=== PATIENT | male | born 1940 | race Caucasian/White ===

== ENCOUNTER 2018-06-13 09:20 | Inpatient (IN) | payer OTHER ==
[2018-06-13] MEDS ORDERED: NS 1,000 ML IV ONE (09:48)
--- NOTE | 2018-06-13 09:50 | EDPHY ---
H & P Stated Complaint: GI problems since 05/28 Time Seen by Provider: 06/13/18 09:38 HPI/ROS: CHIEF COMPLAINT: "I'm just not getting the usual feedback from my stomach" HISTORY OF PRESENT ILLNESS: 77-year-old male, generally healthy, no history of abdominal surgeries, states that since eating at [employer] on 05/28/2018 he has been experiencing a variety of gastrointestinal complaints. He has been intermittently experiencing loose stool . He is concerned because he is not receiving the "usual feedback from my stomach whether I should eat or not". He therefore has not been eating very frequently. When he does eat he does not experience abdominal pain, does not experience back or flank pain, did not experience nausea or vomiting but does note that he does not experience satiety. Denies: Weight loss, abdominal pain, headache, fever, chills, flu-like symptoms , myalgias, melena or hematochezia PRIMARY CARE PROVIDER: No primary care provider. REVIEW OF SYSTEMS: 10 systems reviewed and negative with the exception of the elements mentioned in the history of present illness PAST MEDICAL & SURGICAL HISTORY: No pertinent medical or surgical history . No history of abdominal surgery . Patient has no primary care provider, has not had annual physical examination in several years because states that he has been feeling well. SOCIAL HISTORY:Nonsmoker. No alcohol use. 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 PHYSICAL EXAM (Prior to examination, patient consented to physical exam, hands were washed and my usual and customary physical exam procedures followed) 1) GENERAL: Well-developed, well-nourished, alert and oriented. Appears to be in no acute distress. 2) HEAD: Normocephalic, atraumatic 3) HEENT: Pupils equal, round, reactive to light bilaterally. Sclera anicteric. Nasopharynx, oropharynx, clear, no lesions. Dry mucous membranes. Ears bilaterally with normal tympanic membranes. 4) NECK: Full range of motion, no meningeal signs. 5) LUNGS: Clear auscultation bilaterally, no wheezes, no rhonchi, no retractions. 6) HEART: Regular rate and rhythm, no murmur, no heave, no gallop. 7) ABDOMEN: No guarding, no rebound, no focal tenderness, negative McBurney's, negative Fajardo's, negative Rovsing's, negative peritoneal sign, 8) MUSCULOSKELETAL: Moving all extremities, no focal areas of tenderness, no obvious trauma. No peripheral edema or discoloration. 9) BACK: No CVA tenderness, no midline vertebral tenderness, no fluctuance, no step-off, no obvious trauma, no visual or palpable abnormality. 10) SKIN: No rash, no petechiae. 11) Psychiatric: Patient is oriented X 3, there is no agitation. DIFFERENTIAL DIAGNOSIS: My differential diagnosis includes, but is not limited to, acute appendicitis, malignancy, acute cholecystitis, bowel obstruction, acute pancreatitis, [testicular torsion], gastritis and urinary tract infection. The patient understands that this diagnosis is provisional and can never be 100% accurate. This is a partial list of diagnoses considered. These considerations are based on history, physical exam, past history and reassessment. - Personal History Current Tetanus Diphtheria and Acellular Pertussis (TDAP): Yes - Medical/Surgical History Hx Asthma: No Hx Chronic Respiratory Disease: No Hx Diabetes: No Hx Cardiac Disease: No Hx Renal Disease: No Hx Cirrhosis: No Hx Alcoholism: No Hx HIV/AIDS: No Hx Splenectomy or Spleen Trauma: No - Social History Smoking Status: Never smoked Constitutional: Initial Vital Signs Temperature (C) 36.6 C 06/13/18 09:32 Heart Rate 107 H 06/13/18 09:32 Respiratory Rate 16 06/13/18 09:32 Blood Pressure 140/71 H 06/13/18 09:32 O2 Sat (%) 95 06/13/18 09:32 O2 Delivery Mode Room Air Allergies/Adverse Reactions: No Known Allergies Allergy (Unverified 06/13/18 09:36) Home Medications: Medication Instructions Recorded NK [No Known Home Meds] 06/13/18 Medical Decision Making - Diagnostics Imaging Results: Imaging Impressions Abdomen CT 06/13/18 10:18 Impression: 1. Diffuse bowel wall thickening and inflammatory stranding surrounding the ascending, transverse, and descending colon compatible with colitis, possibly of infectious, inflammatory, or less likely ischemic nature. No evidence of small bowel obstruction or free air. 2. Mild dilatation of intrahepatic/extrahepatic biliary system for the patient' s age, with clinical concern for biliary obstruction, further evaluation with MRCP or ERCP is recommended. Mary Ledesma was notified these findings by telephone at 10:58 AM on 06/13/2018 Images reviewed by myself ED Course/Re-evaluation: 10:11 a.m.: Discussed case with secondary supervising physician Dr. Christian Espinoza in the ER. Patient describes decreased appetite for the past approximately 17 days with no abdominal pain. He is noted to have a critically low point of care potassium of 2.7. EKG in cardiac monitoring has been ordered on this patient. He denies vomiting or diarrhea. Will plan on CT imaging of the abdomen to evaluate for possible intra-abdominal malignancy. 10:19 a.m.: The laboratory potassium 3.1 significantly different verses the 2.7 , in addition the i-STAT creatinine is notably different from the laboratory value. Will proceed with CT imaging the abdomen and pelvis. 11:10 a.m.: Patient has diffuse colitis of the this large intestine. This may be secondary to infectious etiology. I recommended hospitalization, ceftriaxone , Flagyl. He is agreeable with this. 11:16 a.m.: Consultation with hospitalist, admit to Dr. Medel - Data Points Laboratory Results: Laboratory Results 06/13/18 09:50 06/13/18 09:50 06/13/18 06/13/18 06/13/18 10:02 09:50 09:50 WBC 13.41 10^3/uL H 10^3/uL (3.80-9.50) RBC 4.76 10^6/uL 10^6/uL (4.40-6.38) Hgb 14.3 g/dL g/dL (13.7-17.5) POC Hgb 15.3 gm/dL gm/dL (13.7-17.5) Hct 41.3 % % (40.0-51.0) POC Hct 45 % % (40-51) MCV 86.8 fL fL (81.5-99.8) MCH 30.0 pg pg (27.9-34.1) MCHC 34.6 g/dL g/dL (32.4-36.7) RDW 12.8 % % (11.5-15.2) Plt Count TNP MPV TNP Neut % (Auto) Not Reported Lymph % (Auto) Not Reported [place] % (Auto) Not Reported Eos % (Auto) Not Reported Baso % (Auto) Not Reported Nucleat RBC Rel Count Not Reported Absolute Neuts (auto) Not Reported Absolute Lymphs (auto) Not Reported Absolute Monos (auto) Not Reported Absolute Eos (auto) Not Reported Absolute Basos (auto) Not Reported Absolute Nucleated RBC Not Reported Immature Gran % Not Reported Seg Neutrophils % 55.0 % % Band Neutrophils % 37.0 % % Lymphocytes % 0.0 % % Monocytes % 8.0 % % Eosinophils % 0.0 % % Basophils % 0.0 % % Metamyelocytes % 0.0 % % Myelocytes % 0.0 % % Promyelocytes % 0.0 % % Blast Cells % 0.0 % % Immature Gran # Not Reported Absolute Seg Neuts 7.38 10^3/uL H 10^3/uL (1.70-6.50) Absolute Band Neuts 4.96 10^3/uL H 10^3/uL (0.00-0.70) Absolute Lymphocytes 0.00 10^3/uL L 10^3/uL (1.00-3.00) Absolute Monocytes 1.07 10^3/uL H 10^3/uL (0.30-0.80) Absolute Eosinophils 0.00 10^3/uL L 10^3/uL (0.03-0.40) Absolute Basophils 0.00 10^3/uL L 10^3/uL (0.02-0.10) Absolute Metamyelocyte 0.00 10^3/mL 10^3/mL (0.00-0.00) Absolute Myelocytes 0.00 10^3/mL 10^3/mL (0.00-0.00) Absolute Promyelocytes 0.00 10^3/uL 10^3/uL (0.00-0.00) Absolute Plasma Cells 0.00 10^3/uL 10^3/uL (0.00-0.00) Nucleated RBCs 0 /100 WBC /100 WBC (0-0) RBC/WBC/PLT Morphology NORMAL (NORMAL) Absolute Blast Cells 0.00 10^3/uL 10^3/uL (0.00-0.00) Plasma Cells % 0.0 % % Platelet Estimate TNP POC Sodium 134 mEq/L L mEq/L (135-145) Sodium 132 mEq/L L mEq/L (135-145) POC Potassium 2.6 mEq/L L* mEq/L (3.3-5.0) Potassium 3.1 mEq/L L mEq/L (3.5-5.2) POC Chloride 94 mEq/L L mEq/L (97-110) Chloride 96 mEq/L L mEq/L (97-110) Carbon Dioxide 24 mEq/l mEq/l (22-31) POC Total CO2 23 mEq/L mEq/L (22-31) Anion Gap 12 mEq/L mEq/L (6-14) POC BUN 21 mg/dL mg/dL (7-23) BUN 23 mg/dL mg/dL (7-23) Creatinine 1.2 mg/dL mg/dL (0.7-1.3) POC Creatinine 1.4 mg/dL H mg/dL (0.7-1.3) Estimated GFR 59 Glucose 165 mg/dL H mg/dL (70-100) POC Glucose 174 mg/dL H mg/dL (70-100) Calcium 8.1 mg/dL L mg/dL (8.5-10.4) Total Bilirubin 3.5 mg/dL H mg/dL (0.1-1.4) Conjugated Bilirubin 1.8 mg/dL H mg/dL (0.0-0.5) Unconjugated Bilirubin 1.7 mg/dL H mg/dL (0.0-1.1) AST 24 IU/L IU/L (17-59) ALT 40 IU/L IU/L (21-72) Alkaline Phosphatase 85 IU/L IU/L (38-126) Total Protein 5.9 g/dL L g/dL (6.3-8.2) Albumin 3.0 g/dL L g/dL (3.5-5.0) Lipase < 10 IU/L L IU/L (23-300) Medications Given: Discontinued Medications Sodium Chloride (Ns) 1,000 mls @ 0 mls/hr IV EDNOW ONE; Wide Open PRN Reason: Protocol Stop: 06/13/18 09:49 Last Admin: 06/13/18 09:55 Dose: 1,000 mls Ceftriaxone Sodium/Dextrose (Rocephin 1 Gm (Premix)) 50 mls @ 100 mls/hr IV EDNOW ONE PRN Reason: Protocol Stop: 06/13/18 11:43 Last Admin: 06/13/18 12:23 Dose: 50 mls Metronidazole/Sodium Chloride (Flagyl 500 Mg (Premix)) 100 mls @ 100 mls/hr IV EDNOW ONE PRN Reason: Protocol Stop: 06/13/18 12:12 Last Admin: 06/13/18 12:24 Dose: 100 mls Ceftriaxone Sodium/Dextrose (Rocephin 1 Gm (Premix)) 50 mls @ 100 mls/hr IV ONCE ONE PRN Reason: Protocol Stop: 06/13/18 13:50 Last Admin: 06/13/18 14:02 Dose: 50 mls Potassium Chloride (Klor-Con) 40 meq PO ONCE ONE Stop: 06/13/18 11:26 Last Admin: 06/13/18 13:30 Dose: 40 meq Point of Care Test Results: Chemistry 06/13/18 10:02 POC Sodium 134 mEq/L L mEq/L (135-145) POC Potassium 2.6 mEq/L L* mEq/L (3.3-5.0) POC Chloride 94 mEq/L L mEq/L (97-110) POC Total CO2 23 mEq/L mEq/L (22-31) POC BUN 21 mg/dL mg/dL (7-23) POC Creatinine 1.4 mg/dL H mg/dL (0.7-1.3) POC Glucose 174 mg/dL H mg/dL (70-100) ISTAT H&H 06/13/18 10:02 POC Hgb 15.3 gm/dL gm/dL (13.7-17.5) POC Hct 45 % % (40-51) Departure - Departure Disposition: [facility] Acute Condition: Fair
[2018-06-13] MEDS ORDERED: IOHEXOL 300 mgI/ML (OMNIPAQUE) 150 ML BTL IV ONE (10:20)
[2018-06-13] MEDS ORDERED: ACETAMINOPHEN 325 MG TAB PO PRN (11:23)
[2018-06-13] MEDS ORDERED: ONDANSETRON 4 MG/2 ML VIAL IVP PRN (11:23)
[2018-06-13] MEDS ORDERED: ONDANSETRON DISINTEGRATING 4 MG TAB PO PRN (11:23)
[2018-06-13] MEDS ORDERED: POTASSIUM CL 20 MEQ TAB PO ONE (11:25)
--- NOTE | 2018-06-13 12:40 | ASMTCMCOM ---
CM Note CM Note Notes: Pt presented to the ED for diarrhea, decreased intake, and decreased satiety since he ate at [employer] on 05/28/18. Pt admitted for diffuse colitis and mild dilation of biliary system. US results pending. Spoke w/pt and he states he lives alone. Pt states he does not have a PCP. CM noticed that the pt had an outpatient lab draw ordered by Dr Charlotte Carney at Internal Medicine at [facility] in 2017, and so CM asked pt if he would like to continue being seen by Dr Carney for primary care and follow-up after this hospital admission. Pt stated "I most definitely do not want to be seen by her. I want nothing to do with that clinic." Pt states he would like to be set up with a different PCP in the [facility] PCP system. CM provided pt with a [facility] PCP pamphlet and encouraged him to look into the different clinic locations and providers. Pt states he will call and make an appt as it gets closer to his discharge from the hospital. 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 Exact DC needs but anticipate pt to stabilize and DC home Ind or w/family? and to follow-up w/ a new PCP. CM to follow. Date Signed: 06/13/2018 12:40 PM Electronically Signed By:Alice Mclaughlin RN
--- NOTE | 2018-06-13 14:22 | GHP ---
[f rep st] HISTORY AND PHYSICAL DATE OF ADMISSION: 06/13/2018 CHIEF COMPLAINT: Diarrhea, weakness. HISTORY OF PRESENT ILLNESS: A 77-year-old male with no past medical history, presenting with progressive weakness, loose stools since May 28. He ate some [place] meatballs at [employer] May 27 and been having 3-4 loose stools a day, nonbloody. Has minimal p.o. intake due to the lack of appetite. If he drinks water, he feels a crampy sensation in his lower abdominal region. Reports subjective fevers, chills, and sweats. He did not take his temperature at home. No nausea or vomiting. He did have an upper respiratory infection prior to the onset of these symptoms. He denies any ill contacts. No recent travel, except [place]. He does not endorse weight loss or weight gain. REVIEW OF SYSTEMS: I completed a 10-point review of systems, negative except as noted in HPI. PAST MEDICAL HISTORY: None. PAST SURGICAL HISTORY: None. HOME MEDICATIONS: None. ALLERGIES: None. FAMILY HISTORY: Noncontributory. PHYSICAL EXAMINATION: VITAL SIGNS: Temperature 38.7, blood pressure 170/95, heart rate 108, respiration 18, and 94% on room air. GENERAL: Lying in bed, fatigued, but in no acute distress. HEENT: PERRLA. Scleral icterus. Dry mucous membranes. Oropharynx is clear. CV: Tachycardic, but regular. LUNGS: Clear. No crackles or wheezing. ABDOMEN: Distended, soft. No tenderness with palpation. Positive bowel sounds. : No Benitez. MUSCULOSKELETAL: 5/5 upper lower extremity strength. NEUROLOGIC: Cranial nerves 2 through 12 intact. PSYCHIATRIC: Alert and oriented x3. SKIN: Warm, dry, jaundice. LABS: WBC 13, hemoglobin 14, hematocrit 43 and platelets not reported. Sodium 134, potassium is 2.6, chloride 94, carbon dioxide 23. Creatinine is 1.4, baseline is 1.2. Glucose 174, calcium 8.1, total bilirubin 3.5, conjugated 1.8 , unconjugated 1.7. AST 24 and ALT 40. Total protein 5.9, albumin is 3, and lipase less than 10. IMAGING: Abdominal CT: Diffuse small bowel wall thickening and inflammatory stranding, surrounds the ascending transverse and descending colon, compatible with colitis. No evidence of small bowel obstruction or free air. Mild dilation of the intra/extrahepatic biliary system. EKG: Right bundle branch block. No old to compare. Abdominal ultrasound: Gallbladder is distended with sludge. No gallstones observed. No secondary evidence of cholecystitis. Mild intra/extrahepatic bile duct dilatation. Mild hepatomegaly. ASSESSMENT AND PLAN: 1. Sepsis: Elevated white count, tachycardia, concern for abdominal source. Treat broadly with ceftriaxone and Flagyl. Concern for cholangitis. We will discuss the case with Surgery. Lactate and blood cultures pending. 2. Tachycardia due to fever and dehydration: IV fluids. 3. Hypovolemic hyponatremia: Due to decreased p.o. intake, normal saline. 4. Hypokalemia. On telemetry, replete aggressively. Repeat BMP this afternoon. 5. Acute kidney injury. Creatinine up to 1.4 today. Again, IV fluids. 6. Hyperbilirubinemia: Concern for cholangitis. There are no overt stones on ultrasound. 7. Mild protein caloric nutrition: Encourage supplementation after surgery and eating. 8. Deep venous thrombosis prophylaxis. Sequential compression devices. 9. Diet: N.p.o. DISPOSITION: The patient warrants inpatient admission, given acute sepsis, concern for cholangitis, warranting IV antibiotics and Surgery consultation. /[id number]/MODL MTDD
--- NOTE | 2018-06-13 14:50 | CPEKG ---
Test Reason : OPEN Blood Pressure : / mmHG Vent. Rate : 103 BPM Atrial Rate : 103 BPM P-R Int : 180 ms QRS Dur : 146 ms QT Int : 389 ms P-R-T Axes : 035 046 024 degrees QTc Int : 509 ms Sinus tachycardia Right bundle branch block Confirmed by Christian Espinoza ([id number]) on 06/13/2018 2:49:35 PM Referred By: Christian Espinoza Confirmed By:Christian Espinoza
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
[2018-06-13] MEDS: NS 1,000 ML IV SCH (17:00)
--- NOTE | 2018-06-13 18:24 | PDMN ---
Medical Necessity Medical necessity: Pt meets IP criteria as of 06/13/2018 per and MCG M-160 ( sepsis); est lso > 2 mn for ongoing tx and management of sepsis with tachycardia , fever and leukocytosis as well as hyponatremia, hypokalemia, CECIL, and hyperbilirubinemia with suspected cholangitis.
[2018-06-14] MEDS: NS 1,000 ML IV SCH ×2 (02:19→11:59)
[2018-06-14] MEDS ORDERED: POTASSIUM CL 20 MEQ TAB PO ONE (13:00)
--- NOTE | 2018-06-14 13:58 | HOSPPROG ---
Hospitalist Progress Note Assessment/Plan: 1. Sepsis: Elevated white count, tachycardia, concern for abdominal source. Due to cholangitis. Improving with IV abx. Dr. Ramesh evaluated and no surgical intervention warranted. Treat broadly with ceftriaxone and Flagyl. Negative GI PCR 2. Tachycardia: resolved with IVFs. 3. Hypovolemic hyponatremia: Due to decreased p.o. intake, normal saline. 4. Hypokalemia. repleting 5. Acute kidney injury. Creatinine up to 1.4 today. Again, IV fluids. 6. Hyperbilirubinemia: sludge on US, no stone. BR trending down 7. Mild protein caloric nutrition: Encourage supplementation after surgery and eating. 8. Diarrhea: PRN immodium, negative PCR 9 Deep venous thrombosis prophylaxis. Sequential compression devices. 10. Diet: ADAT 11. DVT ppx: [facility] Inpatient admission for IV abx, serial labs Subjective: tolerating clear liquids. Diarrhea this morning Objective: Vital Signs Temp Pulse Resp BP Pulse Ox 37.3 C 95 20 134/75 H 93 06/14/18 11:02 06/14/18 11:02 06/14/18 11:02 06/14/18 11:02 06/14/18 11:02 Microbiology 06/13/18 14:50 Gastrointestinal Tract Panel (PCR) - Final Stool No Organism Detected By Pcr Laboratory Results 06/14/18 11:32 06/14/18 04:14 06/13/18 06/14/18 06/15/18 05:59 05:59 05:59 Intake Total 4170 Output Total 500 Balance 3670 - Time Spent With Patient Time Spent with Patient: greater than 35 minutes Time Spent with Patient: Greater than 35 minutes spent on this patients care, greater than 50% of time spent counseling, educating, and coordinating care regarding the above mentioned plan. - Physical Exam Constitutional: no apparent distress Eyes: PERRL, icteric sclera Ears, Nose, Mouth, Throat: moist mucous membranes Cardiovascular: regular rate and rhythym Respiratory: no respiratory distress Gastrointestinal: normoactive bowel sounds, distension, No tenderness, No guarding, No rebound Genitourinary: no bladder fullness Skin: warm Musculoskeletal: full muscle strength Neurologic: AAOx3, CN II-XII Intact Psychiatric: interacting appropriately ICD10 Worksheet Patient Problems: Problems Problem Status Onset Sepsis Acute Sepsis Acute - ICD10 Problem Qualifiers (1) Sepsis (2) Sepsis
--- NOTE | 2018-06-14 15:51 | ASMTCMCOM ---
CM Note CM Note Notes: CM met with patient to review dc plan of care. Nico shares he lives up [place] and is concerned for his safety to return home safely. Will review concerns with physician. May consider HHC if avialable in his area versus SNF rehab if he qualifies. CM to follow. Plan: TBD Date Signed: 06/14/2018 03:51 PM Electronically Signed By:Suellen Lee RN
[2018-06-14] MEDS: POTASSIUM Cl (KCl) 40 MEQ in NS 1,000 ML IV SCH (16:49)
[2018-06-14] MEDS: LOPERAMIDE HCL 2 MG CAP PO PRN (17:54)
[2018-06-15] MEDS: POTASSIUM Cl (KCl) 40 MEQ in NS 1,000 ML IV SCH (02:18)
--- NOTE | 2018-06-15 09:54 | HOSPPROG ---
Hospitalist Progress Note Assessment/Plan: DIAGNOSES: * Acute colitis, presumed infectious but current Andre etiology undetermined * Acute sepsis due to above * Acute kidney injury * Hypovolemic hyponatremia/hypokalemia * Dehydration * Metabolic acidosis due to GI bicarbonate loss * Mild protein calorie malnutrition * Elevated bilirubin likely due to above is resolving without any evidence of hepatic inflammation * Mild anemia likely due to the colitis He is better hydrated at this point and electrolytes better, but is still having significant diarrhea. Fevers are improving somewhat. Uncertain if he is getting better because of the antibiotics were giving him more due to his own immune function. Highest suspicion is for infection but nothing on PCR. Will repeat stool studies at this time. If his symptoms persist and we find nothing on PCR, then colonoscopy would be indicated. PLANS: * Continue IV hydration * Continue current antibiotics * Repeat stool studies * Continue to follow electrolytes, CO2 levels * Continue regular diet as tolerated * Can stop cardiac monitoring at present SUBJECTIVE: Still no abdominal pain per se and no sign of bleeding However continues to have significant diarrhea No rigors overnight OBJECTIVE Vitals reviewed: T-max overnight 37.7 News Director, my review: Sinus Exam: alert oriented relaxed skin warm dry color ok no jaundice resps not labored lungs clear BSs heart regular abd soft nondistended nontender, bowel sounds present limbs warm, no edema iv site ok Microbiology: GI pathogen panel negative 06/13 Blood cultures no growth to date Lab: Bilirubin down to 1.5 Potassium now in normal range Renal function remains stable 1.1 Albumin remains low at 2.1 WBC remains elevated greater than 11,000 Remains anemic with normocytic indices Objective: Vital Signs Temp Pulse Resp BP Pulse Ox 36.7 C 92 16 145/82 H 89 L 06/15/18 08:00 06/15/18 08:00 06/15/18 08:00 06/15/18 08:00 06/15/18 08:00 Laboratory Results 06/15/18 04:18 06/15/18 04:18 06/14/18 06/15/18 06/16/18 06:59 06:59 06:59 Intake Total 4170 2908 Output Total 500 1500 Balance 3670 1408 ICD10 Worksheet Patient Problems: Problems Problem Status Onset Sepsis Acute Sepsis Acute
[2018-06-15] MEDS: LOPERAMIDE HCL 2 MG CAP PO PRN (15:27)
[2018-06-15] MEDS: NS 1,000 ML IV SCH (16:30)
--- NOTE | 2018-06-16 10:36 | ASMTCMCOM ---
CM Note CM Note Notes: 06/16/2018 Case Management Note Met w/pt and son Chris [phone] who is visiting from [place]. Pt is refusing home care. Provided pamphlet with locations of primary care clinics through [facility]. Pt was formerly associated with [facility]. Pt to arrange follow up MD appointment. No further case management d/c needs identified. Pt likely to discharge on oral antibiotics. Case Management d/c poc: anticipating independent with follow up as directed Case Management available if needs change. Date Signed: 06/16/2018 10:35 AM Electronically Signed By:Jessica Ricardo RN
[2018-06-16] MEDS: NS 1,000 ML IV SCH (10:38)
[2018-06-16] MEDS: LOPERAMIDE HCL 2 MG CAP PO PRN (14:15)
--- NOTE | 2018-06-16 15:22 | HOSPPROG ---
Hospitalist Progress Note Assessment/Plan: DIAGNOSES: * Acute colitis, presumed infectious but currently etiology undetermined * Acute sepsis due to above, resolved * Acute kidney injury, resolved * Hypovolemic hyponatremia/hypokalemia from GI losses improving with replacements * Dehydration * Metabolic acidosis due to GI bicarbonate loss improving * Mild protein calorie malnutrition * Elevated bilirubin likely due to above is resolving without any evidence of hepatic inflammation * Mild anemia likely due to the colitis, normocytic * Nocturnal hypoxemia, lives at somewhat higher altitude, no signs of pulmonary edema with IV fluids Continues slow improvement with decrease number in volume of stools, stool poor appetite but taking in some food PLANS: * Continue IV hydration * Continue current antibiotics started at admission * Repeat stool studies * Continue to follow electrolytes, CO2 levels * Continue regular diet as tolerated * Consider discharge home 06/17- * As long as this illness resolves without any other interventions he will need no other assessments. If for some reason illness does not resolve or develops other new symptoms may need to consider colonoscopy Patient with many questions today and I spent considerable time answering the questions for him. 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 Manager, my review: Sinus Exam: alert oriented relaxed skin warm dry color ok no jaundice resps not labored lungs clear BSs heart regular abd soft somewhat more distended today, however nontender, normal bowel sounds limbs warm, no edema iv site ok Microbiology: GI pathogen panel negative 06/13 Blood cultures no growth to date Lab: Potassium slightly better Renal function stable Liver numbers stable Objective: Vital Signs Temp Pulse Resp BP Pulse Ox 36.8 C 82 18 144/84 H 96 06/16/18 15:01 06/16/18 15:01 06/16/18 15:01 06/16/18 15:01 06/16/18 15:01 Laboratory Results 06/15/18 04:18 06/16/18 04:19 06/15/18 06/16/18 06/17/18 06:59 06:59 06:59 Intake Total 2908 1127 1369 Output Total 1500 Balance 1408 1127 1369 - Time Spent With Patient Time Spent with Patient: greater than 35 minutes Time Spent with Patient: Greater than 35 minutes spent on this patients care, greater than 50% of time spent counseling, educating, and coordinating care regarding the above mentioned plan. ICD10 Worksheet Patient Problems: Problems Problem Status Onset Sepsis Acute Sepsis Acute
[2018-06-17] MEDS: NS 1,000 ML IV SCH (04:07)
[2018-06-17 08:29] VITALS: BP 133/99
--- NOTE | 2018-06-17 10:39 | HOSPPROG ---
Hospitalist Progress Note Assessment/Plan: 77 yo M w viral gastroenteritis eating decreased frequency of stool home today > 30 minutes Subjective: eating. decreasing frequency of stool Objective: Vital Signs Temp Pulse Resp BP Pulse Ox 36.4 C 99 16 133/99 H 94 06/17/18 08:00 06/17/18 08:00 06/17/18 08:00 06/17/18 08:00 06/17/18 08:00 Laboratory Results 06/15/18 04:18 06/17/18 08:57 06/16/18 06/17/18 06/18/18 05:59 05:59 05:59 Intake Total 1127 2394 Balance 1127 2394 - Physical Exam Constitutional: no apparent distress, appears nourished Eyes: PERRL, anicteric sclera Ears, Nose, Mouth, Throat: moist mucous membranes, hearing normal Cardiovascular: regular rate and rhythym, no murmur, rub, or gallop Respiratory: no respiratory distress, no rales or rhonchi Gastrointestinal: normoactive bowel sounds, soft, non-tender abdomen, No guarding, No rebound Genitourinary: no bladder fullness, No benoit in urethra Skin: warm, normal color Neurologic: AAOx3 ICD10 Worksheet Patient Problems: Problems Problem Status Onset Sepsis Acute Sepsis Acute
--- NOTE | 2018-06-17 11:00 | GDS ---
[f rep st] DISCHARGE SUMMARY DISCHARGE DIAGNOSIS: Viral gastroenteritis with ongoing diarrhea and negative micro. Please see admission history and physical by Dr. Rosa Medel. The patient presented with a couple weeks of diarrhea after a meatball misadventure at [facility]. He had negative stool pathogens. He had o ngoing diarrhea. He is fairly upset about it. He had diffuse small bowel thickening, inflammatory s tranding seen on abdominal CT. He also had some biliary dilation. Subsequent ultrasound showed mild intra and extrahepatic biliary bile duct dilation. He had no evidence of cholecystitis. He had a m odestly elevated bilirubin with normal transaminases and alkaline phosphatase while here. He is disc harged home. I did recommend outpatient repeat ultrasound at 6 months. /[id number]/MODL
--- NOTE | 2018-06-17 11:03 | ASDISCHSUM ---
Discharge Information Plan Status:Home with No Needs Medically Cleared to Leave:06/16/2018 Discharge Date:06/16/2018 CM D/C Disposition:Home, Routine, Self-Care ADT D/C Disposition: Projected Discharge Date:06/16/2018 Transportation at D/C:Family Discharge Delay Reason: Follow-Up Date:06/16/2018 Discharge Slot: Final Diagnosis: Placement Information Patient Contact Information Contact Name:KOLTON Relationship: Address: Home Phone: Work Phone: City: Alternate Phone: [place]: Email: Financial Information Financial Class:Medicare Primary Plan Desc:MEDICARE INPATIENT Primary Plan Number:[id number] Secondary Plan Desc:HUMANA Secondary Plan Number:[id number] Assessment Information [facility] CM Progress Note CM Note CM Note Notes: Pt presented to the ED for diarrhea, decreased intake, and decreased satiety since he ate at [employer] on 05/28/18. Pt admitted for diffuse colitis and mild dilation of biliary system. US results pending. Spoke w/pt and he states he lives alone. Pt states he does not have a PCP. CM noticed that the pt had an outpatient lab draw ordered by Dr Charlotte Carney at Internal Medicine at [facility] in 2017, and so CM asked pt if he would like to continue being seen by Dr Carney for primary care and follow-up after this hospital admission. Pt stated "I most definitely do not want to be seen by her. I want nothing to do with that clinic." Pt states he would like to be set up with a different PCP in the [facility] PCP system. CM provided pt with a [facility] PCP pamphlet and encouraged him to look into the different clinic locations and providers. Pt states he will call and make an appt as it gets closer to his discharge from the hospital. 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 Exact DC needs but anticipate pt to stabilize and DC home Ind or w/family? and to follow-up w/ a new PCP. CM to follow. Date Signed: 06/13/2018 12:40 PM Electronically Signed By:Alice Mclaughlin RN LACE LACLuz Marina Length of stay for Answers: 4-6 days current admission Acuity / Level of Answers: Yes Care: Did the patient have an inpatient admission? # of Emergency department Answers: 1-2 visits in the last 6 months Social determinants Answers: Lack of community resources and/or lack of social support (no pcp, lives alone, transportation, ziggy d) Score: 12 Date Signed: 06/17/2018 10:52 AM Electronically Signed By:Jessica Ricardo RN [facility] CM Progress Note CM Note CM Note Notes: CM met with patient to review dc plan of care. Nico shares he lives up [facility] and is concerned for his safety to return home safely. Will review concerns with physician. May consider HHC if avialable in his area versus SNF rehab if he qualifies. CM to follow. Plan: TBD Date Signed: 06/14/2018 03:51 PM Electronically Signed By:Suellen Lee RN [facility] CM Progress Note CM Note CM Note Notes: 06/16/2018 Case Management Note Met w/pt and son Chris [phone] who is visiting from [place]. Pt is refusing home care. Provided pamphlet with locations of primary care clinics through [facility]. Pt was formerly associated with [facility]. Pt to arrange follow up MD appointment. No further case management d/c needs identified. Pt likely to discharge on oral antibiotics. Case Management d/c poc: anticipating independent with follow up as directed Case Management available if needs change. Date Signed: 06/16/2018 10:35 AM Electronically Signed By:Jessica Ricardo RN Case Management Discharge Plan Note Case Management Discharge Discharge Order Complete? Answers: Yes Patient to Obtain Answers: via Family Medications Transportation Arranged Answers: Family/Friends Discharge Comments Notes: 06/17/2018 [place] Management Note Pt to discharge home with support from son Chris who is visiting from [place] until Thursday. Pt declined home care services. Case Management d/c poc: independent with follow up as directed. Date Signed: 06/17/2018 11:02 AM Electronically Signed By:Jessica Ricardo RN Intervention Information Intervention Type:*Incorrect Registration Date of Service:06/13/2018 06:20 PM Patient Type:Observation Staff Member:Ling Heller Hours: Discipline: Severity: Comment:
--- NOTE | 2018-06-21 12:02 | PQFORM ---
PHYSICIAN QUERY FORM Needs Your Response This query form is being sent to you to assure this patient record is coded properly. Please respond to the question below: TARIFF PUBLISHING AGENT QUESTION: Dear Dr. Tyler, On admission, Dr. Medel documents that the patient exhibited symptoms of sepsis , evidenced by elevated WBCs and tachycardia. The patient was treated with ceftriaxone and flagyl. Dr. Ansari documents the sepsis resolved by the and the GI pathogen panel was negative with improvement in symptoms. Based on the clinical findings and your professional judgment, can any of the following be added as diagnoses to the discharge summary?: Sepsis due to viral gastroenteritis Sepsis due to acute colitis of infectious etiology ___X___ Sepsis of other etiology The patient did not have sepsis Thank you for clarifying, SIVAKUMAR Bledsoe HIM Coding INSTRUCTIONS FOR RESPONSE: Answer question by clicking on the "Edit Document" button. Move cursor to area below the stars. When complete, hit "Save." Click on the "Sign" button, then click "Sign" again. Type in your PIN and hit "Enter." MTDD
== END 2018-06-17 12:30 | disposition home or self-care (01) | DRG 872 ==
LOC: OBSVTOIN 11:23 → F3E 12:55
PROVIDERS: ADMIT Internal Medicine; ATTEND Internal Medicine
DX: A41.89 Other specified sepsis (principal); A08.4 Viral intestinal infection, unspecified; E87.1 Hypo-osmolality and hyponatremia; N17.9 Acute kidney failure, unspecified; E87.2 Acidosis; E44.1 Mild protein-calorie malnutrition; E87.6 Hypokalemia; E86.0 Dehydration; R79.89 Other specified abnormal findings of blood chemistry; D64.9 Anemia, unspecified; R09.02 Hypoxemia
CPT/HCPCS: 82435-PO; 82565-PO; 82947-PO; 84132-PO; 84295-PO; 84520-PO; 85014-ER; 96365; 97116-GP; 97161-GP; 97165-GO; J0696; J3480; Q9967

== ENCOUNTER 2018-06-29 16:57 | Inpatient (IN) | payer OTHER ==
[2018-06-29] MEDS ORDERED: ONDANSETRON 4 MG/2 ML VIAL IVP PRN (17:46)
[2018-06-29] MEDS ORDERED: ZOLPIDEM TARTRATE 5 MG TAB PO PRN (17:46)
[2018-06-29] MEDS ORDERED: NS 1,000 ML IV ONE (17:46)
[2018-06-29] MEDS ORDERED: ACETAMINOPHEN 325 MG TAB PO PRN (17:46)
[2018-06-29] MEDS ORDERED: ONDANSETRON DISINTEGRATING 4 MG TAB PO PRN (19:22)
--- NOTE | 2018-06-29 19:25 | PDGENHP ---
<Pao Pearson - Last Filed: 06/29/18 19:50> History and Physical - Chief Complaint Ongoing diarrhea - History of Present Illness HPI: 77 y/o male with no PMH and recent admission w/colitis presents as a direct admit from GI clinic with ongoing loose stools, experiencing upwards to 10 bowel movements per day. He was discharged on 06/17 after a 5 day admission here suspected infectious colitis. At that time, Abdominal US and CT revealed diffuse small bowel wall thickening and inflammatory stranding, surrounds the ascending transverse and descending colon, compatible with colitis. No evidence of SBO or free air. Mild dilation of the intra/extrahepatic biliary system. The gallbladder was distended with sludge, no gallstones observed. No secondary evidence of cholecystitis. Negative GI panel at that time. He followed up with Dr. Ashanti Pennington on 06/25 for ongoing diarrhea. He attempted Imodium but did not see a reduction in his bowel movements. He then followed up with GI today who then sent him here. He reports ever since eating [employer] meatballs at [facility] on 05/27, he has had bouts of loose stool, no hematochezia. He has lost his appetite and PO intake because it causes lower abdominal cramping. Endorses chills 3 days ago. Denies the following: chest pain, palpitations, nausea, vomiting, fevers, dysuria, night sweats, rashes, and cough. His last colonoscopy was approximately 20 years ago and supposedly normal. He is being admitted for observation. History Information - Allergies/Home Medication List Allergies/Adverse Reactions: No Known Allergies Allergy (Unverified 06/13/18 09:36) Home Medications: Loperamide HCl [Imodium 2 mg (*)] 2 mg PO BID PRN 06/29/18 [Last Taken Unknown] I have personally reviewed and updated: family history, medical history, social history, surgical history - Past Medical History no pertinent PMH - Surgical History Reports: no pertinent surgical hx - Family History Positive for: non-pertinent - Social History Smoking Status: Never smoked Alcohol Use: None Drug Use: None Additional social history: Lives alone in the "[facility]" [facility] Review of Systems Review of Systems: ROS: 10pt was reviewed & negative except for what was stated in HPI & below Physical Exam Physical Exam: Previous lab data and imaging were reviewed. Case discussed with admitting physician, Dr. Raymundo Ansari. Temp Pulse Resp BP Pulse Ox 36.8 C 100 16 114/68 92 06/29/18 17:51 06/29/18 17:51 06/29/18 17:51 06/29/18 17:51 06/29/18 17:51 Constitutional: no apparent distress, appears nourished, not in pain Eyes: PERRL, anicteric sclera, EOMI Ears, Nose, Mouth, Throat: hearing normal, ears appear normal, no oral mucosal ulcers, dry mucous membranes Cardiovascular: regular rate and rhythym, no murmur, rub, or gallop, tachycardia , edema (1+ bilateral pitting edema to BLE) Peripheral Pulses: 1+: dorsalis-pedis (R) (Radial 2+), dorsalis-pedis (L) Respiratory: no respiratory distress, no rales or rhonchi, clear to auscultation Gastrointestinal: normoactive bowel sounds, soft, non-tender abdomen, no palpable masses Genitourinary: no bladder fullness, no bladder tenderness Skin: warm, normal color, no rashes or abrasions, no fluctuance, no induration, No mottled Musculoskeletal: full muscle strength, no muscle tenderness, normal joint ROM, no joint effusions Neurologic: AAOx3, sensation intact bilaterally, CN II-XII Intact Psychiatric: interacting appropriately, not anxious, not encephalopathic, thought process linear Lymph, Heme, Immunologic: no cervical LAD, no supraclavicular LAD Assessment & Plan Plan: This is a 77 y/o male with no PMH presenting with persistent ongoing loose stools, upwards to 10 bowel movements a day. He reports at times, these BMs wake him up in the middle of the night. He has lost his appetite and has poor PO intake. He does not believe Imodium was helping reduce his BMs. #Loose stools: He continues to experience loose stools. Prior admission was dx' ed with suspected colitis. Reportedly, his symptoms have not resolved. -GI consulted; Dr. Pau Gutierrez. Most likely colonoscopy tomorrow. Per pt, last colonoscopy was 20 years ago and was normal. -Carbohydrate antigen/TSH/Fat Feces pending -IVF 1L bolus + maintenance IVF for poor PO intake, moderate tenting, and dry mucous membrane -Monitor I&Os -Daily AM weights -CBC/BMP/LFTs in AM #Nausea: treat PRN with anti-emetics Diet: NPO VTE ppx: Low risk, up ad jose Code: Full Dispo: Admit to obs <Med Ansari - Last Filed: 06/29/18 23:41> History and Physical - History of Present Illness Review of Systems Review of Systems: Physical Exam Physical Exam: Temp Pulse Resp BP Pulse Ox 37.7 C 108 H 18 111/64 91 L 06/29/18 20:35 06/29/18 20:35 06/29/18 20:35 06/29/18 20:35 06/29/18 20:35 Assessment & Plan Plan: Seen by me and examine, reviewed with Maggie Pearson CAREER TECHNICAL COUNSELOR. I agree with the assessment and the treatment plans as outlined above. Will await results of colonoscopy. Further plans for any other assessments or treatment after that.
[2018-06-29] MEDS ORDERED: PEG 3350/NA SULF,BICARB,CL/KCL (GAVILYTE-G) 4000 ML BTL PO ONE (19:27)
[2018-06-29] MEDS: NS 1,000 ML IV SCH (20:02)
--- NOTE | 2018-06-29 21:00 | GCON ---
[f rep st] CONSULTATION GI INPATIENT CONSULTATION DATE OF CONSULTATION: 06/29/2018 REFERRING PHYSICIAN: Ashanti Pennington MD CHIEF COMPLAINT: I was kindly requested to see the patient in consultation by Dr. Ashanti Pennington for chief complaint of digestive symptoms. HISTORY OF PRESENT ILLNESS: He is a 77-year-old white male who was in good health until May 28. Then, he began to develop diarrhea, with up to 10 loose bowel movements a day. With this, he has had a lack of appetite and has a subsequent weight loss of about 12 pounds over the last month. He has been getting progressively worse, now with dehydration, difficulty with activities of daily living, etc. He lives alone in the [facility], with his daughter in law visiting from [place] to help take care of him, and with her leaving soon. Because of all of the above, he was admitted to the hospital. Prior to the above, he denies any new medications, herbs, supplements. He denies a chronic problem with diarrhea. Workup has included a CT scan of the abdomen and pelvis with IV contrast, showing diffuse bowel wall thickening and inflammatory stranding from the descending colon to the ascending colon. There is also mention of mild dilation of the intrahepatic and extrahepatic ducts. Recent liver tests normal. Sodium 134, which has recently dropped to 131. GI PCR for infectious pathogens negative. Ultrasound showed some sludge in the gallbladder, and otherwise, the above mild ductal dilation. For the above, he has been using Imodium 2 tablets twice a day, which helps somewhat. Today, he developed some 1+ pedal edema. PAST MEDICAL HISTORY: As above. Otherwise, noncontributory. OUTPATIENT MEDICATIONS: As above. SOCIAL HISTORY: He is not . He lives alone in the [facility]. FAMILY HISTORY: Negative for similar diarrhea. REVIEW OF SYSTEMS: Positive pertinent review of systems as per my HPI. Otherwise, a complete review of systems is negative. PHYSICAL EXAM: CONSTITUTIONAL: Ill-appearing gentleman. VITAL SIGNS: Stable. SKIN: Warm, dry. EYES: Pupils equal, round, reactive to light and accommodation. EARS, NOSE, MOUTH, AND THROAT: Oropharynx without masses. Moist mucosa. CARDIOVASCULAR: Normal S2. Normal PMI. RESPIRATORY: Lungs clear to auscultation and percussion anteriorly. GASTROINTESTINAL: Abdomen soft, nontender. No masses felt. NEUROLOGIC: Grossly nonfocal, with cranial nerves grossly intact. PSYCHIATRIC: Orientation, insight appropriate. MUSCULOSKELETAL: Strength grossly normal throughout. Normal sensation. LABORATORIES: Include the above. ASSESSMENT: Subacute diarrhea, since May, with no appetite, poor oral intake, weight loss, and now signs of dehydration and some failure to thrive. With the CT scan findings, this could represent inflammatory bowel, such as Crohn's or ulcerative colitis, but unusual with the relatively acute presentation. A small bowel malabsorption process, such as the development of Whipple disease, celiac disease, etc., is possible. Fat malabsorption is possible. With his rapid decline, and some mild biliary duct dilation, a malignancy is possible, not appreciated on his initial CT scan. This could include an evolving pancreatic cancer, etc. Thyroid disorder is possible. PLAN: 1. Gentle IV fluids, considering his pedal edema. 2. Will do a gentle partial colon prep, and proceed with colonoscopy with biopsies, intubation of the terminal ileum tomorrow. We will also proceed with an upper endoscopy with small bowel biopsies. 3. Blood work for TSH. 4. Stool for spot fecal fat. 5. Will check a CA 19-9. If the above evaluation is negative, and he continues to do poorly, he might also require a repeat CT scan of the abdomen vs. MRI/MRCP, to see if something is evolving in the pancreas. 6. Management of his pedal edema,as per the hospitalist service. 7. After his above procedures, he can be restarted on Imodium routinely. 8. Recheck electrolytes. Thank you for allowing me to help with the management of this patient. /[id number]/MODL MTDD
[2018-06-29] MEDS: MELATONIN 3 MG TAB PO SCH (23:04)
[2018-06-29] MEDS ORDERED: LOPERAMIDE HCL 2 MG CAP PO PRN (23:39)
--- NOTE | 2018-06-29 23:44 | HOSPPROG ---
Hospitalist Progress Note Assessment/Plan: Seen by me in examined with nurse practitioner Maggie Pearson Today. I know this patient from his previous hospital admission. He has had ongoing diarrhea for a full month at this time. There is no bleeding, but he did have CT scan showing inflammatory changes suggesting colitis during a previous hospital stay. At this point his intake of foods minimal is becoming malnourished with weight loss. He does have a low-grade temperature elevation here so far this evening. He did have a negative GI pathogen panel during the prior admission. Dr. Mai has seen the patient and either he or 1 of his partners will perform colonoscopy tomorrow morning. For now will hydrate and treat symptomatically Objective: Vital Signs Temp Pulse Resp BP Pulse Ox 37.7 C 108 H 18 111/64 91 L 06/29/18 20:35 06/29/18 20:35 06/29/18 20:35 06/29/18 20:35 06/29/18 20:35 ICD10 Worksheet Patient Problems: Problems Problem Status Onset Sepsis Acute Sepsis Acute
[2018-06-30 05:08] LABS: PLATELET COUNT 375 10^3/uL (150-400)
[2018-06-30] MEDS ORDERED: MAGNESIUM CITRATE 300 ML BOTTLE PO ONE (08:30)
[2018-06-30] MEDS: NS 1,000 ML IV SCH (08:33)
--- NOTE | 2018-06-30 09:39 | ASMTCMCOM ---
CM Note CM Note Notes: Chart reviewed. Pt 77 years old admitted with persistent loose stool and poor appetite He is being prepped for a colonoscope this morning[place] Case management will continue to monitor for need. Plan:TBD Date Signed: 06/30/2018 09:39 AM Electronically Signed By:Lor Rucker
--- NOTE | 2018-06-30 11:18 | PDANEPAE ---
ANE History of Present Illness EGD EUS, Colonoscopy ANE Past Medical History - Cardiovascular History Hx Hypertension: No Hx Arrhythmias: No Hx Chest Pain: No Hx Coronary Artery / Peripheral Vascular Disease: No Hx CHF / Valvular Disease: No Hx Palpitations: No - Pulmonary History Hx Oxygen in Use at Home: No Hx Sleep Apnea: No Sleep Apnea Screening Result - Last Documented: Negative - Endocrine History Hx Diabetes: No Hypothyroid: No Hyperthyroid: No Obesity: mild ANE Review of Systems Review of Systems: - Exercise capacity METS (RN): 4 METS ANE Patient History - Allergies Allergies/Adverse Reactions: No Known Allergies Allergy (Unverified 06/13/18 09:36) - Home Medications Home Medications: Loperamide HCl [Imodium 2 mg (*)] 2 mg PO BID PRN 06/29/18 [Last Taken Unknown] - NPO status NPO Status: no food or drink >8 hours NPO Since - Liquids (Date): 06/30/18 NPO Since - Liquids (Time): 00:00 NPO Since - Solids (Date): 06/30/18 NPO Since - Solids (Time): 00:00 - Smoking Hx Smoking Status: Never smoked - Alcohol Use Alcohol Use: None - Family Anes Hx Family Anes Hx: none ANE Labs/Vital Signs - Labs Result Diagrams: 06/30/18 04:46 06/30/18 04:46 - Vital Signs Blood Pressure: 126/75 Heart Rate: 116 Respiratory Rate: 16 O2 Sat (%): 91 Height: 177.8 cm Weight: 75.2 kg ANE Physical Exam - Airway Neck exam: decreased ROM Mallampati Score: Class 2 Mouth exam: normal dental/mouth exam - Pulmonary Pulmonary: no respiratory distress, no rales or rhonchi - Cardiovascular Cardiovascular: regular rate and rhythym, no murmur, rub, or gallop, tachycardia - ASA Status ASA Status: II ANE Anesthesia Plan Anesthesia Plan: GA w LMA
[2018-06-30] MEDS ORDERED: PROPOFOL/EMULSION 500 MG/50 ML BOTTLE IV ONE (11:25)
--- NOTE | 2018-06-30 11:42 | PDMN ---
Medical Necessity Medical necessity: Pt meets IP criteria per & MCG M-565 Inflammatory Bowel Disease; est los >2 mn for eval/tx of colitis w/persistent diarrhea (upwards of 10 bowel movements daily), tachycardia & poor PO intake; requiring further monitoring, GI consult w/colonoscopy, NPO status & IVFs; hx recent hospitalization for infectious colitis; per H&P & order 06/29/18
[2018-06-30] MEDS ORDERED: LIDOCAINE 2% 5 ML SDV ONE (12:03)
[2018-06-30] MEDS ORDERED: PROPOFOL 200 MG/20 ML VIAL ONE (12:04)
[2018-06-30] MEDS ORDERED: NALOXONE HCL 0.4 MG/ML INJ IVP PRN (12:11)
[2018-06-30] MEDS ORDERED: ONDANSETRON 4 MG/2 ML VIAL IVP PRN (12:11)
[2018-06-30] MEDS ORDERED: fentaNYL 100 MCG/2 ML INJ IVP PRN (12:11)
--- NOTE | 2018-06-30 15:17 | POSTANESTH ---
Post Anesthetic Evaluation Cardiovascular Status: Similar to Pre-Op Cond Respiratory Status: Similar to Pre-op Cond. Level of Consciousness/Mental Status: Can Participate in Eval Pain Control: Adequate, Prn Tx Ordered Nausea/Vomiting Control: Adequate, Prn Tx Ordered Complications Possibly Related to Anesthesia: None Noted
--- NOTE | 2018-06-30 15:48 | HOSPPROG ---
Hospitalist Progress Note Assessment/Plan: Colitis - C-scope today with extensive inflammation per GI. Discussed with Dr. Su, who is suspicious for Crohn's, path pending. He recommends Cipro/Flagyl. -cont supportive care -trial clears -Cipro / Flagyl per GI recs -GI PCR neg -fecal fat pending -F/U pathology, may warrant steroids if Crohn's positive Anemia - normocytic. Fe studies c/w ACD -start po iron Hyponatremia - suspect hypovolemic -cont NS at 75/hr, recheck in AM Conjugated hyperbilirubinemia - unclear etiology, ducts ok per GI report -trend for now Full code Dispo - cont inpt Subjective: Pt seems sad, says he is sleepy after procedure. C/O abdominal distention and flatus. No N/V. No fevers. Objective: Vital Signs Temp Pulse Resp BP Pulse Ox 37.6 C 108 H 16 124/67 H 91 L 06/30/18 13:22 06/30/18 14:22 06/30/18 14:22 06/30/18 14:22 06/30/18 14:22 Microbiology 06/29/18 10:50 Gastrointestinal Tract Panel (PCR) - Final Stool No Organism Detected By Pcr Laboratory Results 06/30/18 04:46 06/30/18 04:46 06/29/18 06/30/18 07/01/18 05:59 05:59 05:59 Intake Total 200 2046 Output Total 50 Balance 200 1995 - Physical Exam Constitutional: no apparent distress Eyes: PERRL Ears, Nose, Mouth, Throat: moist mucous membranes Cardiovascular: regular rate and rhythym Respiratory: no respiratory distress Gastrointestinal: normoactive bowel sounds, distension, other (soft, mod distention, non-tender, no r/r/g) Skin: warm Musculoskeletal: full muscle strength Neurologic: AAOx3 Psychiatric: interacting appropriately ICD10 Worksheet Patient Problems: Problems Problem Status Onset Sepsis Acute Sepsis Acute
--- NOTE | 2018-06-30 16:19 | SOAPPROG ---
SOAP Progress Note Assessment/Plan: Assessment: Plan: 06/30/18 16:17 GI note S/p EGD/EUS/colonoscopy. Significant inlfammation (R>L) on colonoscopy. Crohns ? Biopsies taken will start Flagyl and Cipro. Check ESR, CRP, iron studies. On EGD/EUS no cause of biliary dilation/PD seen. Biopsies taken for gastritis and sprue. See procedure note for provation for details Objective: Vital Signs Temp Pulse Resp BP Pulse Ox 37.7 C 113 H 18 127/60 H 93 06/30/18 15:22 06/30/18 15:22 06/30/18 15:22 06/30/18 15:22 06/30/18 15:22 Microbiology 06/29/18 10:50 Gastrointestinal Tract Panel (PCR) - Final Stool No Organism Detected By Pcr Laboratory Results 06/30/18 04:46 06/30/18 04:46 06/29/18 06/30/18 07/01/18 05:59 05:59 05:59 Intake Total 200 2046 Output Total 50 Balance 200 1995 ICD10 Worksheet Patient Problems: Problems Problem Status Onset Sepsis Acute Sepsis Acute
--- NOTE | 2018-06-30 17:09 | GIREPORT ---
[facility] - Endoscopy Department Patient Name: John Yu Procedure Date: 06/30/2018 11:15 AM Patient Type: Inpatient Attending MD/ ER Physician: Mendel Su MD Procedure: Upper EUS Indications: Common bile duct dilation (acquired) seen on CT scan, Anorexia, Diarrhe a, Weight loss Patient Profile: 77 year old male presents for evaluation of diarrhea, weight loss, anor exia, as well as CBD dilation. Providers: Mendel Su MD Medicines: Monitored Anesthesia Care Complications: No immediate complications. Estimated blood loss: Minimal. Description of Procedure: After obtaining informed consent, the endoscope was passed under direct vision. Throughout the procedure, the patient's blood pressure, pulse, and oxygen saturations were monitored continuously. The Endoscope was intro duced through the mouth, and advanced to the second part of duodenum. The Endosonoscope was introduced through the mouth, and advanced to the sec ond part of duodenum. The esophagus, stomach, and duodenum were visualized endosonographically. The upper EUS was accomplished without difficulty. The esophagus, stomach, and duodenum were visualized endosonographically. T he patient tolerated the procedure well. Findings: Endoscopic Finding : Normal esophagus. A hiatal hernia was present. Patchy mildly erythematous mucosa was found in the gastric body and in the gastric antrum. Biopsies were taken with a cold forceps for histology. The examined duodenum was normal. Biopsies for histology were taken wit h a cold forceps for evaluation of celiac disease. Endosonographic Finding : Minimal hyperechoic material consistent with sludge was visualized endosonographically in the gallbladder. There was dilation in the common bile duct which measured up to 8 mm. Pancreatic parenchymal abnormalities were noted in the entire pancreas. These consisted of hyperechoic foci. The pancreatic duct had a prominently branched endosonographic appearan ce and had hyperechoic pedro in the entire pancreas. There was no sign of significant endosonographic abnormality in the visualized portion of the liver. No masses were identified. No lymphadenopathy seen. Estimated Blood Loss: Estimated blood loss was minimal. Post Op Diagnosis: - Normal esophagus. - Hiatal hernia. - Erythematous mucosa in the gastric body and antrum. Biopsied. - Normal examined duodenum. Biopsied. - Hyperechoic material consistent with sludge was visualized endosonographically in the gallbladder. - There was dilation in the common bile duct which measured up to 8 mm. - Pancreatic parenchymal abnormalities consisting of hyperechoic foci w ere noted in the entire pancreas. - The pancreatic duct had a prominently branched endosonographic appear ance and had hyperechoic pedro in the entire pancreas. - There was no evidence of significant pathology in the visualized port ion of the liver. - Etiology? No obvious cause of symptoms or CBD dilation noted. No mass noted. Await biopsy results. Recommendation: - Perform a colonoscopy today. - Await path results. - Thank you for allowing me to participate in the care of your patient. Attending Participation: I personally performed the entire procedure. Mendel Su MD Mendel Su MD 06/30/2018 5:09:07 PM This report has been signed electronicallyMendel Su MD Number of Addenda: 0 Note Initiated On: 06/30/2018 11:15 AM [email or web address]
--- NOTE | 2018-06-30 17:37 | GIREPORT ---
[facility] - Endoscopy Department Patient Name: John Yu Procedure Date: 06/30/2018 11:17 AM Patient Type: Inpatient Attending MD/ ER Physician: Mendel Su MD Procedure: Colonoscopy Indications: Chronic diarrhea, Abnormal CT of the GI tract Patient Profile: 77 year old male presents for evaluation of diarrhea/abnormal imaging. Providers: Mendel Su MD Medicines: Monitored Anesthesia Care Complications: No immediate complications. Estimated blood loss: Minimal. Description of Procedure: After obtaining informed consent, the scope was passed under direct vis ion. Throughout the procedure, the patient's blood pressure, pulse, and oxyg en saturations were monitored continuously. The Colonoscope with irrigatio n channel was introduced through the anus and advanced to the terminal il eum. The colonoscopy was performed without difficulty. The patient tolerated the procedure well. The quality of the bowel preparation was poor. The term inal ileum, ileocecal valve, appendiceal orifice, and rectum were photograph ed. Findings: The perianal and digital rectal examinations were normal. Pertinent negatives include no palpable rectal lesions. A diffuse area of severely erythematous, deeply ulcerated mucosa with disruption of the the vascular pattern was found in the descending colo n, in the transverse colon, in the ascending colon and in the cecum. The dise ase was greater on the right side of the colon versus the left side. In the rectum and sigmoid colon, the mucosa had a normal vascular pattern exce pt for several pathcy deep ulcerations. Biopsies were taken with a cold fo rceps for histolog throughout the colon. The terminal ileum appeared normal. Estimated Blood Loss: Estimated blood loss was minimal. Post Op Diagnosis: - Preparation of the colon was poor. - Erythematous mucosa in the descending colon, in the transverse colon, in the ascending colon and in the cecum. - The examined portion of the ileum was normal. - Biopsies were taken with a cold forceps for histology. - Etiology? Crohns disease versus other? Await biopsy results. Recommendation: - Perform an upper GI endoscopy/EUS. - Await pathology results. - Thank you for allowing me to participate in the care of your patients . Attending Participation: I personally performed the entire procedure. Mendel Su MD Mendel Su MD 06/30/2018 5:37:02 PM This report has been signed electronicallyMendel Su MD Number of Addenda: 0 Note Initiated On: 06/30/2018 11:17 AM Total Procedure Duration Time 0 hours 19 minutes 32 seconds [email or web address]
[2018-06-30] MEDS: CIPROFLOXACIN 400 MG/DEXTROSE 200 ML IV SCH (18:28)
[2018-06-30] MEDS: MELATONIN 3 MG TAB PO SCH (23:35)
[2018-07-01] MEDS ORDERED: NS 1,000 ML IV ONE (00:04)
[2018-07-01] MEDS: CIPROFLOXACIN 400 MG/DEXTROSE 200 ML IV SCH ×2 (04:00→15:23)
[2018-07-01 05:44] LABS: PLATELET COUNT 344 10^3/uL (150-400)
[2018-07-01] MEDS: FERROUS SULFATE 325 MG TAB PO SCH (08:07)
--- NOTE | 2018-07-01 11:01 | HOSPPROG ---
Hospitalist Progress Note Assessment/Plan: 77yo M with no significant PMH here with diarrhea found to have colitis. #Pancolitis: Diarrhea improving. Unclear if infectious vs inflammatory. - Await biopsy results - Continue cipro/flagyl for now - GI PCR negative - Fecal fat pending - Ok to discontinue contact precautions #Fever/SIRS: Likely related to above - Abx as above #CBD dilation, conjugated hyperbilirubinemia: EUS without clear etiology. Bilirubin down-trending. #Anemia: Normocytic. Iron deficiency and chronic disease - Started on PO iron #Hyponatremia: Small drop but has been npo - Increase NS to 125/hr, recheck VTE ppx: Code: full Diet: advance to regular today Dispo: Remain inpatient Subjective: Frustrated that we don't have diagnosis. Stable abdominal distention. No n/v/abd pain. No diarrhea since colonoscopy. Had fever last night and BP a little low (SBP 90s), received 1L NS bolus. BP better now. Objective: Vital Signs Temp Pulse Resp BP Pulse Ox 36.8 C 96 18 122/72 H 92 07/01/18 08:00 07/01/18 08:00 07/01/18 08:00 07/01/18 08:00 07/01/18 08:00 Microbiology 06/29/18 10:50 Gastrointestinal Tract Panel (PCR) - Final Stool No Organism Detected By Pcr Laboratory Results 07/01/18 05:04 07/01/18 05:04 06/30/18 07/01/18 07/02/18 05:59 05:59 05:59 Intake Total 200 2746 1530 Output Total 50 Balance 200 2696 1530 - Physical Exam Constitutional: no apparent distress, appears nourished, not in pain Eyes: PERRL, anicteric sclera, EOMI Ears, Nose, Mouth, Throat: moist mucous membranes, hearing normal, ears appear normal, no oral mucosal ulcers Cardiovascular: regular rate and rhythym, no murmur, rub, or gallop Respiratory: no respiratory distress, no rales or rhonchi, clear to auscultation Gastrointestinal: normoactive bowel sounds, distension, No tenderness Genitourinary: no bladder fullness, no bladder tenderness, no renal bruits Skin: no rashes or abrasions, no fluctuance, no induration Musculoskeletal: full muscle strength, no muscle tenderness, normal joint ROM Neurologic: AAOx3, sensation intact bilaterally Psychiatric: interacting appropriately, not anxious, not encephalopathic, thought process linear ICD10 Worksheet Patient Problems: Problems Problem Status Onset Sepsis Acute Sepsis Acute
[2018-07-01] MEDS ORDERED: IOPAMIDOL (ISOVUE 370) 100 ML BTL IV ONE (16:58)
--- NOTE | 2018-07-01 18:26 | SOAPPROG ---
SO[facility] Progress Note Assessment/Plan: Assessment: Plan: 06/30/18 16:17 GI note S/p EGD/EUS/colonoscopy. Significant inlfammation (R>L) on colonoscopy. Crohns ? Biopsies taken will start Flagyl and Cipro. Check ESR, CRP, iron studies. On EGD/EUS no cause of biliary dilation/PD seen. Biopsies taken for gastritis and sprue. See procedure note for provation for details 07/01/18 18:23 A/P 1. Colitis- significant inflammation with deep ulcerations from cecum to descending colon. Called path to discuss. Acute on chronic inflammation with focal ischemia changes. Ischemic vs crohns vs other? I am unsure of cause. Due to possibility of ischemia, will check CT angiography. Will also start steroids soon. D/w patient at length. Subjective: cc: Follow up on colitis Feeling better Objective: Vital Signs Temp Pulse Resp BP Pulse Ox 37.2 C 100 18 153/86 H 90 L 07/01/18 15:06 07/01/18 15:06 07/01/18 15:06 07/01/18 15:06 07/01/18 15:06 Laboratory Results 07/01/18 05:04 07/01/18 05:04 06/30/18 07/01/18 07/02/18 05:59 05:59 05:59 Intake Total 200 2746 2029 Output Total 50 Balance 200 2696 2029 Physical Exam - Physical Exam General Appearance: alert, no apparent distress EENT: No scleral icterus (R), No scleral icterus (L) Respiratory: chest non-tender, lungs clear, normal breath sounds, No rales, No rhonchi Cardiac/Chest: regular rate, rhythm Abdomen: soft, No non-tender (tender in midepigastrium), No distended, No guarding, No rebound Skin: normal color, warm/dry Neuro/Psych: alert, normal mood/affect, oriented x 3, No abnormal log operations coordinator II-XII ICD10 Worksheet Patient Problems: Problems Problem Status Onset Sepsis Acute Sepsis Acute
[2018-07-01] MEDS: methylPREDNISolone SOD SUCC 125 MG/2 ML VIAL IVP SCH (18:38)
[2018-07-01] MEDS: MELATONIN 3 MG TAB PO SCH (21:18)
[2018-07-02] MEDS: methylPREDNISolone SOD SUCC 125 MG/2 ML VIAL IVP SCH (00:31)
[2018-07-02] MEDS: CIPROFLOXACIN 400 MG/DEXTROSE 200 ML IV SCH ×2 (03:13→15:52)
[2018-07-02] MEDS: FERROUS SULFATE 325 MG TAB PO SCH (09:00)
[2018-07-02] MEDS: ENOXAPARIN 40 MG/0.4 ML SYR SC SCH (09:01)
[2018-07-02] MEDS: methylPREDNISolone SOD SUCC 40 MG/ML VIAL IVP SCH (11:08)
--- NOTE | 2018-07-02 11:19 | SOAPPROG ---
NABE[facility] Progress Note Assessment/Plan: Assessment: Plan: 06/30/18 16:17 GI note S/p EGD/EUS/colonoscopy. Significant inlfammation (R>L) on colonoscopy. Crohns ? Biopsies taken will start Flagyl and Cipro. Check ESR, CRP, iron studies. On EGD/EUS no cause of biliary dilation/PD seen. Biopsies taken for gastritis and sprue. See procedure note for provation for details 07/01/18 18:23 A/P 1. Colitis- significant inflammation with deep ulcerations from cecum to descending colon. Called path to discuss. Acute on chronic inflammation with focal ischemia changes. Ischemic vs crohns vs other? I am unsure of cause. Due to possibility of ischemia, will check CT angiography. Will also start steroids soon. D/w patient at length. 07/02/18 11:17 A/P 1. Colitis- cecum to descending colon. CT angio negative. Suspect Crohns. Will start Solumedrol 60mg IV BID. D/w patient and family. Subjective: cc: Follow up colitis Feeling better on dose of steroids. Objective: Vital Signs Temp Pulse Resp BP Pulse Ox 36.5 C 79 16 132/87 H 94 07/02/18 07:47 07/02/18 07:47 07/02/18 07:47 07/02/18 07:47 07/02/18 07:47 Laboratory Results 07/02/18 04:58 07/02/18 04:58 07/01/18 07/02/18 07/03/18 05:59 05:59 05:59 Intake Total 5226 3617 Output Total 50 Balance 3066 3610 Physical Exam - Physical Exam General Appearance: alert, no apparent distress EENT: No scleral icterus (R), No scleral icterus (L) Respiratory: lungs clear, normal breath sounds, No decreased breath sounds, No rales, No rhonchi Cardiac/Chest: regular rate, rhythm, No diastolic murmur, No systolic murmur Abdomen: non-tender, soft, No distended, No guarding, No rebound Skin: normal color, warm/dry Neuro/Psych: normal mood/affect, oriented x 3, 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
--- NOTE | 2018-07-02 12:01 | HOSPPROG ---
Hospitalist Progress Note Assessment/Plan: 77yo M with no significant PMH here with diarrhea found to have colitis. #Pancolitis: Biopsies c/w inflammatory bowel disease, suspect Crohn's. CTA negative for ischemic colitis. GI PCR negative. - D/w Dr Su of GI - IV solumedrol 60mg q12h - Stopping antibiotics this evening #Fever/SIRS: Better, likely related to above #CBD dilation, conjugated hyperbilirubinemia: EUS without clear etiology. Bilirubin down-trending. #Anemia: Normocytic. Iron deficiency and chronic disease - Started on PO iron #Hyponatremia: Stable - Continue NS, monitor VTE ppx: LMWH Code: full Diet: regular Dispo: Remain inpatient Subjective: ALready feeling better after starting steroids. No fevers Objective: Vital Signs Temp Pulse Resp BP Pulse Ox 36.5 C 83 18 134/85 H 93 07/02/18 07:47 07/02/18 11:18 07/02/18 11:18 07/02/18 11:18 07/02/18 11:18 Laboratory Results 07/02/18 04:58 07/02/18 04:58 07/01/18 07/02/18 07/03/18 05:59 05:59 05:59 Intake Total 2746 3615 Output Total 50 Balance 2696 3615 - Physical Exam Constitutional: no apparent distress, appears nourished, not in pain Eyes: PERRL, anicteric sclera, EOMI Ears, Nose, Mouth, Throat: moist mucous membranes, hearing normal, ears appear normal, no oral mucosal ulcers Cardiovascular: regular rate and rhythym, no murmur, rub, or gallop Respiratory: no respiratory distress, no rales or rhonchi, clear to auscultation Gastrointestinal: normoactive bowel sounds, distension, No tenderness Genitourinary: no bladder fullness, no bladder tenderness, no renal bruits Skin: no rashes or abrasions, no fluctuance, no induration Musculoskeletal: full muscle strength, no muscle tenderness, normal joint ROM Neurologic: AAOx3, sensation intact bilaterally Psychiatric: interacting appropriately, not anxious, not encephalopathic, thought process linear ICD10 Worksheet Patient Problems: Problems Problem Status Onset Sepsis Acute Sepsis Acute
--- NOTE | 2018-07-02 17:44 | ASMTCMCOM ---
CM Note CM Note Notes: Met with Pt and son. Son want to make sure his Father has help when he discharges since he lives in the [facility]. Pt has a 17yr old daughter but she is not available to help. He has adult sons that live out of state. PT & OT order obtained and will eval discharge needs. CM available for needs. Plan: TBD Date Signed: 07/02/2018 05:44 PM Electronically Signed By:Lor Rucker
[2018-07-02] MEDS: MELATONIN 3 MG TAB PO SCH (20:30)
[2018-07-02] MEDS: NS 1,000 ML IV SCH (20:45)
[2018-07-03] MEDS: methylPREDNISolone SOD SUCC 40 MG/ML VIAL IVP SCH (00:53)
[2018-07-03] MEDS: NS 1,000 ML IV SCH (05:11)
[2018-07-03] MEDS: CIPROFLOXACIN 400 MG/DEXTROSE 200 ML IV SCH (05:12)
--- NOTE | 2018-07-03 08:45 | SOAPPROG ---
[facility] Progress Note Assessment/Plan: Assessment:Plan: 1) Colitis - treating as Crohn's, responding to steroids well, will change agent to oral prednisone. Start mesalamine once doing well on oral steroids 2) diarrhea - none today 3) abdo pain - improving 4) diet - regular bx/path not dx of IBD, they suggest ischemia but CT angio with NO evidence of ischemic etiology responding to steroids 07/03/18 08:45 Subjective: first time I am seeing pt CC - colitis with diarrhea over one month now improved on IV steroids, working dx is Crohn's pt very happy with improvement less pain, no BM"s encouraged to increase PO intake Objective: Vital Signs Temp Pulse Resp BP Pulse Ox 36.5 C 87 16 145/89 H 91 L 07/03/18 08:19 07/03/18 08:19 07/03/18 08:19 07/03/18 08:19 07/03/18 08:19 Laboratory Results 07/02/18 04:58 07/03/18 05:04 07/02/18 07/03/18 07/04/18 05:59 05:59 06:59 Intake Total 3615 2109 Output Total 300 Balance 3615 1809 Alert CTA S1S2 +BS, soft minimal tenderness to palpation ICD10 Worksheet Patient Problems: Problems Problem Status Onset Sepsis Acute Sepsis Acute
[2018-07-03] MEDS: FERROUS SULFATE 325 MG TAB PO SCH (09:17)
[2018-07-03] MEDS: predniSONE 20 MG TAB PO SCH ×2 (09:17→18:31)
[2018-07-03] MEDS: ENOXAPARIN 40 MG/0.4 ML SYR SC SCH ×2 (09:17→09:21)
--- NOTE | 2018-07-03 09:47 | HOSPPROG ---
Hospitalist Progress Note Assessment/Plan: 77yo M with no significant PMH here with diarrhea found to have colitis. #Pancolitis: Suspect idiopathic inflammatory bowel disease, but not definitively Crohn's. CTA negative for ischemic colitis. GI PCR negative. - GI following, switching from solumedrol to pred 20 BID today - Considering mesalamine - Stopped antibiotics #Fever/SIRS: Resolved, likely related to above #CBD dilation, conjugated hyperbilirubinemia: EUS without clear etiology. Bilirubin down-trending. #Anemia: Normocytic. Iron deficiency and chronic disease - Started on PO iron #Hyponatremia: Improving. Liberalize PO intake. VTE ppx: LMWH Code: full Diet: regular Dispo: Remain inpatient, possible dc in 1-2 days Subjective: No abdominal pain. No diarrhea or BMs. No fevers. Objective: Vital Signs Temp Pulse Resp BP Pulse Ox 36.5 C 87 16 145/89 H 91 L 07/03/18 08:19 07/03/18 08:19 07/03/18 08:19 07/03/18 08:19 07/03/18 08:19 Laboratory Results 07/02/18 04:58 07/03/18 05:04 07/02/18 07/03/18 07/04/18 05:59 05:59 06:59 Intake Total 3615 2109 Output Total 300 Balance 3615 1809 - Physical Exam Constitutional: no apparent distress, appears nourished, not in pain Eyes: PERRL, anicteric sclera, EOMI Ears, Nose, Mouth, Throat: moist mucous membranes, hearing normal, ears appear normal, no oral mucosal ulcers Cardiovascular: regular rate and rhythym, no murmur, rub, or gallop Respiratory: no respiratory distress, no rales or rhonchi, clear to auscultation Gastrointestinal: normoactive bowel sounds, soft, non-tender abdomen, no palpable masses Genitourinary: no bladder fullness, no bladder tenderness, no renal bruits Skin: no rashes or abrasions, no fluctuance, no induration Musculoskeletal: full muscle strength, no muscle tenderness, normal joint ROM Neurologic: AAOx3, sensation intact bilaterally Psychiatric: interacting appropriately, not anxious, not encephalopathic, thought process linear ICD10 Worksheet Patient Problems: Problems Problem Status Onset Sepsis Acute Sepsis Acute
[2018-07-03] MEDS: MELATONIN 3 MG TAB PO SCH (22:06)
[2018-07-04] MEDS: FERROUS SULFATE 325 MG TAB PO SCH (09:54)
[2018-07-04] MEDS: predniSONE 20 MG TAB PO SCH ×2 (09:54→18:05)
[2018-07-04] MEDS: ENOXAPARIN 40 MG/0.4 ML SYR SC SCH (10:05)
[2018-07-04] MEDS ORDERED: MELATONIN 3 MG TAB PO PRN (10:30)
--- NOTE | 2018-07-04 13:20 | HOSPPROG ---
Hospitalist Progress Note Assessment/Plan: 77yo M with no significant PMH here with diarrhea found to have colitis. #Pancolitis: Improved. Suspect Crohn's although pathology not definitive. CTA negative for ischemic colitis. GI PCR negative. - Continue pred 20mg BID (plan for taper at discharge) - Starting mesalamine per GI - Stopped antibiotics - Will f/u with GI as outpt #Fever/SIRS: Resolved, likely related to above #CBD dilation, conjugated hyperbilirubinemia: EUS without clear etiology. Bilirubin down-trending. #Anemia: Normocytic. Iron deficiency and chronic disease - Started on PO iron #Hyponatremia: Improving. Liberalize PO intake. #Deconditioning: - PT/OT recommending home health care. He is agreeable. CM aware. VTE ppx: LMWH Code: full Diet: regular Dispo: Remain inpatient, dc tomorrow if tolerates mesalamine. Subjective: Had some abdominal cramping and loose stool after taking prednisone yesterday evening. Symptoms resolved and doing well since. Objective: Vital Signs Temp Pulse Resp BP Pulse Ox 36.5 C 88 17 134/85 H 95 07/04/18 08:37 07/04/18 08:37 07/04/18 08:37 07/04/18 08:37 07/04/18 08:37 Laboratory Results 07/02/18 04:58 07/03/18 05:04 07/03/18 07/04/18 07/05/18 04:59 05:59 05:59 Intake Total Output Total Balance - Physical Exam Constitutional: no apparent distress, appears nourished, not in pain Eyes: PERRL, anicteric sclera, EOMI Ears, Nose, Mouth, Throat: moist mucous membranes, hearing normal, ears appear normal, no oral mucosal ulcers Cardiovascular: regular rate and rhythym, no murmur, rub, or gallop Respiratory: no respiratory distress, no rales or rhonchi, clear to auscultation Gastrointestinal: normoactive bowel sounds, distension (but improving), No tenderness Genitourinary: no bladder fullness, no bladder tenderness, no renal bruits Skin: no rashes or abrasions, no fluctuance, no induration Musculoskeletal: full muscle strength, no muscle tenderness, normal joint ROM Neurologic: AAOx3, sensation intact bilaterally Psychiatric: interacting appropriately ICD10 Worksheet Patient Problems: Problems Problem Status Onset Sepsis Acute Sepsis Acute
--- NOTE | 2018-07-04 14:55 | SOAPPROG ---
[facility] Progress Note Assessment/Plan: Assessment:Plan: 1) Colitis - treating as Crohn's, responding to steroids well, will exchange administrator to oral prednisone. Start mesalamine once doing well on oral steroids 2) diarrhea - none today 3) abdo pain - improving 4) diet - regular bx/path not dx of IBD, they suggest ischemia but CT angio with NO evidence of ischemic etiology responding to steroids 07/04/18 14:52 as above 1) Colitis - much improved with steroids - 2 bms formed no blood, decreased pain , will start mesalamine to see if he tolerates. Will need mesalamine prison and steroid taper - I taper by 10mg increments when no sx's for one week down to 20mg, then by 5 mg increments if no sx's for one week 2) diarrhea - improved 3) dispo - prob home tomorrow, will need GI f/u in approx 10-14 days - will initially be with [facility] then Objective: Vital Signs Temp Pulse Resp BP Pulse Ox 36.5 C 88 17 134/85 H 95 07/04/18 08:37 07/04/18 08:37 07/04/18 08:37 07/04/18 08:37 07/04/18 08:37 Laboratory Results 07/02/18 04:58 07/03/18 05:04 07/03/18 07/04/18 07/05/18 04:59 05:59 05:59 Intake Total Output Total Balance Alert CTA S1S2 +BS soft nt ICD10 Worksheet Patient Problems: Problems Problem Status Onset Sepsis Acute Sepsis Acute
--- NOTE | 2018-07-04 15:49 | ASMTCMCOM ---
CM Note CM Note Notes: Patient plan of care reviewed with MD. Patient likely to dc tomorrow. PT and OT recommending HHC. Patient lives alone and is unsteady on his feet. His son's (Bar from [place]) are in his room for conversation and want him to have HHC. Referral to [facility]. Also informed them of [employer] from [employer]. Plan: Hme with HHC when medically cleared for discharge. Date Signed: 07/04/2018 03:49 PM Electronically Signed By:Suellen Lee RN
[2018-07-04] MEDS: MESALAMINE 800 MG TAB.DR PO SCH ×2 (16:20→21:55)
[2018-07-05] MEDS: FERROUS SULFATE 325 MG TAB PO SCH (08:41)
[2018-07-05] MEDS: predniSONE 20 MG TAB PO SCH (08:41)
[2018-07-05] MEDS: MESALAMINE 800 MG TAB.DR PO SCH ×2 (08:41→15:59)
[2018-07-05] MEDS: ENOXAPARIN 40 MG/0.4 ML SYR SC SCH (08:42)
--- NOTE | 2018-07-05 12:48 | SOAPPROG ---
NABEEL Progress Note Assessment/Plan: Assessment:Plan: 1) Colitis - treating as Crohn's, responding to steroids well, will frame changer to oral prednisone. Start mesalamine once doing well on oral steroids 2) diarrhea - none today 3) abdo pain - improving 4) diet - regular bx/path not dx of IBD, they suggest ischemia but CT angio with NO evidence of ischemic etiology responding to steroids 07/04/18 14:52 as above 1) Colitis - much improved with steroids - 2 bms formed no blood, decreased pain , will start mesalamine to see if he tolerates. Will need mesalamine clinical trials manager and steroid taper - I taper by 10mg increments when no sx's for one week down to 20mg, then by 5 mg increments if no sx's for one week 2) diarrhea - improved 3) dispo - prob home tomorrow, will need GI f/u in approx 10-14 days - will initially be with CONNOR mackenzie MD 07/05/18 12:43 1) Colitis - doing well with 2 formed bm's no blood, on prednisone 40mg daily, taper by 10mg increments from 40 to 30 as long as no sx's for one week, then 30 to 20. From 20mg I do 5 mg increment per week of NO symptoms. Will have him get mesalamine as outpt - I prefer once daily meds so will see if Apriso or Lialda (generic) available for him. he wants a mail order for that - his son is confirming if mail order is [employer] or [facility] 2) dispo - home vs rehab 3) follow-up - will make appt for him to see PA or in 10-17 days in our office discussed with Dr. Evangelista. Subjective: cc- colitis, presumed IBD feeling better, no loose stools no blood, no pain, f/c/s Objective: Vital Signs Temp Pulse Resp BP Pulse Ox 36.8 C 104 H 16 115/73 96 07/05/18 08:00 07/05/18 08:01 07/05/18 08:01 07/05/18 08:01 07/05/18 08:01 Laboratory Results 07/02/18 04:58 07/03/18 05:04 07/04/18 07/05/18 07/06/18 05:59 05:59 05:59 Intake Total 700 350 Output Total Balance 700 350 Alert CTA S1S2 +BS soft nt ICD10 Worksheet Patient Problems: Problems Problem Status Onset Sepsis Acute Sepsis Acute
[2018-07-05 13:00] VITALS: BP 122/72
--- NOTE | 2018-07-05 15:51 | PDDCSUM ---
Discharge Summary Discharge Summary: Date of Admission: 06/29/2018 Date of Discharge: 07/05/2018 Consultants: GI Procedures: EGD with EUS, colonoscopy, CTA abdomen Discharge Diagnoses: 1. Colitis, likely Crohn's 2. SIRS, resolved 3. CBD dilation (8mm) of unknown etiology 4. Anemia related to iron deficiency and chronic inflammation 5. Hyponatremia, improving 6. Deconditioning Brief Hospital Course: 77yo M with no significant PMH presented with diarrhea. He was actually hospitalized several weeks ago for the same after eating meatballs at [facility]. It was felt that he had a viral gastroenteritis at that time. He returned with persistent symptoms. GI PCR was negative. GI was consulted who performed upper and lower endoscopies. Colonoscopy showed erythematous mucosa from ascending colon to rectum. Biopsies demonstrated acute on chronic colitis. A CTA of his abdomen was obtained but did not show any evidence of ischemic colitis. It is thought that his symptoms are related to inflammatory bowel disease, likely Crohn's. He had significant improvement in symptoms after initiating steroids and was discharged on a prednisone taper with GI follow up. Of note, he was trialed on mesalamine and tolerated well; plan to resume this as an outpatient He did have a mild conjugated bilirubinemia. CT from last admission showed mild intra and extra hepatic biliary ductal dilation. This was evaluated with EUS during this admission; CBD measured 8mm but there was no stone or other pathology. He was noted to be anemic and iron studies were consistent with deficiency. He was started on PO iron supplementation. Lastly, he was quite deconditioned. PT/OT recommended SNF but he refused. He was set up with home health care PT/OT/RN. Medications: Please refer to EMR for complete list. He was discharged with a prescription of prednisone. Follow Up Plan: 1. GI clinic visit in 10-14 days to taper steroids, start mesalamine Physical Exam: Vitals reviewed, afebrile. Alert and oriented, generalized weakness, rrr, lungs clear, abdomen soft and nontender, no leg edema, no rashes.
--- NOTE | 2018-07-05 15:51 | PDIAF ---
- Diagnosis Code Status: Full Code - Medication Management Discharge Medications: electronically signed and located in the Home Medication List. PIC Care - Routine: N/A - Orders Services needed: Home Care, Registered Nurse, Certified Biological Plant Operator, Physical Therapy, Occupational Therapy Home Care Face to Face: I certify that this patient was under my care and that I had the required [id number] encounter meeting the encounter requirements on the discharge day. My findings support the fact that the patient is homebound as defined in Home Care Face to Face Continued: CMS Chapter 7 Medicare Benefits Manual 30.1.1 , The condition of the patient is such that there exists a normal inability to leave home and consequently, leaving home would require a considerable and taxing effort. Isolation Type: None Diet Recommendation: no restrictions on diet Diet Texture: Regular Texture Diet Benitez: Not applicable Additional Instructions: Please continue to take your prednisone as Dr Barrera had recommended. You currently are taking 20mg twice daily. We are setting you up with home health care. You will have a nurse, physical therapist, occupational therapist, and nurse aid checking in on you. Dr Barrera and Dr Su's office will be contacting you to set up an appointment in 10-14 days. - Follow Up Care Current Providers and Referrals: Vinod Barrera MD [Medical Doctor] - Ashanti Pennington MD [Primary Care Provider] -
--- NOTE | 2018-07-05 15:59 | ASMTLACE ---
LACE Length of stay for Answers: 4-6 days current admission Acuity / Level of Answers: Yes Care: Did the patient have an inpatient admission? # of Emergency department Answers: 1-2 visits in the last 6 months Score: 8 Date Signed: 07/05/2018 03:59 PM Electronically Signed By:Nadine Malik RN
--- NOTE | 2018-07-05 16:03 | ASMTCMCOM ---
CM Note CM Note Notes: After much discussion today with both patient and son re: SNF vs HHC, patient has declined SNF and would like to discharge with C. [facility] (patient's #1 choice) is unable to staff until later this week. Referral sent to [facility], able to accept. Patient's son is highly involved in care and will be leaving on Thursday evening. D/W . Plan: [facility] RN/PT/OT/HYDROLOGY TECHNICIAN Date Signed: 07/05/2018 04:02 PM Electronically Signed By:Nadine Malik RN
--- NOTE | 2018-07-05 16:39 | PDIAF ---
- Diagnosis Code Status: Full Code - Medication Management Discharge Medications: electronically signed and located in the Home Medication List. PIC Care - Routine: N/A - Orders Services needed: Home Care, Registered Nurse, Physical Therapy Home Care Face to Face: I certify that this patient was under my care and that I had the required [id number] encounter meeting the encounter requirements on the discharge day. My findings support the fact that the patient is homebound as defined in Home Care Face to Face Continued: CMS Chapter 7 Medicare Benefits Manual 30.1.1 , The condition of the patient is such that there exists a normal inability to leave home and consequently, leaving home would require a considerable and taxing effort. Isolation Type: None Diet Recommendation: no restrictions on diet Diet Texture: Regular Texture Diet Benitez: Not applicable Additional Instructions: Please continue to take your prednisone as Dr Barrera had recommended. You currently are taking 20mg twice daily. We are setting you up with home health care. You will have a nurse, physical therapist, occupational therapist, and nurse aid checking in on you. Dr Barrera and Dr Su's office will be contacting you to set up an appointment in 10-14 days. [facility] #[phone] - Follow Up Care Current Providers and Referrals: Vinod Barrera MD [Medical Doctor] - Mendel Su MD [Medical Doctor] - Ashanti Pennington MD [Primary Care Provider] -
--- NOTE | 2018-07-06 13:00 | ASDISCHSUM ---
Discharge Information Plan Status:Home with Home Health Medically Cleared to Leave: Discharge Date:07/05/2018 04:48 PM CM D/C Disposition:Home Health Service ADT D/C Disposition:[id number] Projected Discharge Date:07/05/2018 11:00 AM Transportation at D/C:Family Discharge Delay Reason: Follow-Up Date:07/05/2018 11:00 AM Discharge Slot: Final Diagnosis: Placement Information Referral Type:*Home Health Care Services Referral ID:[id number] Provider Name:[facility] Address 1:[address] [address] Address 2: City:[place] Selection Factors: State:[place] Patient Contact Information Contact Name:IVETHTAMEKAGAIL Relationship:Son Address: Work Phone: City: [facility] Phone: [facility] Code: Email: Financial Information Financial Class:Medicare Primary Plan Desc:MEDICARE INPATIENT Primary Plan Number:[id number] Secondary Plan Desc:KARIMEA Secondary Plan Number:[id number] Assessment Information LACE LACE Length of stay for Answers: 4-6 days current admission Acuity / Level of Answers: Yes Care: Did the patient have an inpatient admission? # of Emergency department Answers: 1-2 visits in the last 6 months Score: 8 Date Signed: 07/05/2018 03:59 PM Electronically Signed By:Nadine Malik RN [facility] CM Progress Note CM Note CM Note Notes: Chart reviewed. Pt 77 years old admitted with persistent loose stool and poor appetite He is being prepped for a colonoscope this morning. Pt lives alone in the [facility]. Case management will continue to monitor for need. Plan:TBD Date Signed: 06/30/2018 09:39 AM Electronically Signed By:Lor Rucker [facility] CM Progress Note CM Note CM Note Notes: Met with Pt and son. Son want to make sure his Father has help when he discharges since he lives in the [facility]. Pt has a 17yr old daughter but she is not available to help. He has adult sons that live out of state. PT & OT order obtained and will eval discharge needs. CM available for needs. Plan: TBD Date Signed: 07/02/2018 05:44 PM Electronically Signed By:Lor Rucker [facility] CM Progress Note CM Note CM Note Notes: Patient plan of care reviewed with MD. Patient likely to dc tomorrow. PT and OT recommending HHC. Patient lives alone and is unsteady on his feet. His son's (Bar from [place]) are in his room for conversation and want him to have HHC. Referral to [facility]. Also informed them of [employer] from [employer]. Plan: Hme with HHC when medically cleared for discharge. Date Signed: 07/04/2018 03:49 PM Electronically Signed By:Suellen Lee RN [facility] CM Progress Note CM Note CM Note Notes: After much discussion today with both patient and son re: SNF vs HHC, patient has declined SNF and would like to discharge with [facility]. [facility] (patient's #1 choice) is unable to staff until later this week. Referral sent to [facility], able to accept. Patient's son is highly involved in care and will be leaving on Thursday. D/W . Plan: [facility] RN/PT/ZACH/ROSETTE Date Signed: 07/05/2018 04:02 PM Electronically Signed By:Nadine Malik RN Intervention Information
== END 2018-07-05 16:48 | disposition home health service (06) | DRG 386 ==
LOC: EDSTATUS 17:04 → F1N 17:19
PROVIDERS: ADMIT Internal Medicine; ATTEND Internal Medicine
DX: K50.90 Crohn's disease, unspecified, without complications (principal); R65.10 Systemic inflammatory response syndrome (SIRS) of non-infectious origin without acute organ dysfunction; K83.8 Other specified diseases of biliary tract; D50.9 Iron deficiency anemia, unspecified; E87.1 Hypo-osmolality and hyponatremia
CPT/HCPCS: 82710-90; 86301-90; 97116-GP; 97161-GP; 97165-GO; 97530-GO; 97535-GO; J0744; J1650; J2704; J2920; J2930; J7512; Q9967

== ENCOUNTER 2018-07-27 11:16 | Inpatient (IN) | payer OTHER ==
[2018-07-27] MEDS ORDERED: ACETAMINOPHEN 325 MG TAB PO PRN (14:24)
[2018-07-27] MEDS ORDERED: ONDANSETRON 4 MG/2 ML VIAL IVP PRN (14:24)
[2018-07-27] MEDS ORDERED: ONDANSETRON DISINTEGRATING 4 MG TAB PO PRN (14:24)
[2018-07-27] MEDS ORDERED: NS 1,000 ML IV ONE (15:47)
[2018-07-27] MEDS: NS 1,000 ML IV SCH (17:31)
[2018-07-27] MEDS ORDERED: BALSALAZIDE DISODIUM 750 MG CAP PO SCH (18:00)
[2018-07-27] MEDS: methylPREDNISolone SOD SUCC 40 MG/ML VIAL IVP SCH (20:21)
[2018-07-27] MEDS: MESALAMINE 800 MG TAB.DR PO SCH (21:15)
[2018-07-28] MEDS: NS 1,000 ML IV SCH (01:29)
[2018-07-28] MEDS: methylPREDNISolone SOD SUCC 40 MG/ML VIAL IVP SCH ×4 (01:29→20:03)
[2018-07-28] MEDS: MESALAMINE 800 MG TAB.DR PO SCH ×3 (08:07→20:03)
[2018-07-28] MEDS: ENOXAPARIN 40 MG/0.4 ML SYR SC SCH (08:09)
[2018-07-28] MEDS ORDERED: predniSONE 20 MG TAB PO SCH (09:00)
[2018-07-29] MEDS: methylPREDNISolone SOD SUCC 40 MG/ML VIAL IVP SCH ×2 (01:59→08:43)
[2018-07-29] MEDS: MESALAMINE 800 MG TAB.DR PO SCH ×3 (08:42→20:55)
[2018-07-29] MEDS: ENOXAPARIN 40 MG/0.4 ML SYR SC SCH (08:42)
[2018-07-29] MEDS ORDERED: LR 1,000 ML IV ONE (09:31)
[2018-07-29] MEDS ORDERED: LIDOCAINE 2% 100 MG/5 ML SYR ONE (10:12)
[2018-07-29] MEDS ORDERED: PROPOFOL/EMULSION 500 MG/50 ML BOTTLE IV ONE (10:13)
[2018-07-29] MEDS ORDERED: fentaNYL 100 MCG/2 ML INJ ONE (10:13)
[2018-07-29] MEDS ORDERED: MEPERIDINE 25 MG/0.5 ML AMP IVP PRN (10:25)
[2018-07-29] MEDS ORDERED: fentaNYL 100 MCG/2 ML INJ IVP PRN (10:25)
[2018-07-29] MEDS ORDERED: LR 500 ML IV PRN (10:25)
[2018-07-29] MEDS ORDERED: NALOXONE HCL 0.4 MG/ML INJ IVP PRN (10:25)
[2018-07-29] MEDS: predniSONE 20 MG TAB PO SCH (14:00)
[2018-07-30] MEDS: ENOXAPARIN 40 MG/0.4 ML SYR SC SCH (08:30)
[2018-07-30] MEDS: predniSONE 20 MG TAB PO SCH (10:19)
[2018-07-30] MEDS: methylPREDNISolone SOD SUCC 40 MG/ML VIAL IVP SCH ×3 (11:37→23:38)
[2018-07-30] MEDS: MESALAMINE 800 MG TAB.DR PO SCH ×3 (11:44→21:24)
[2018-07-30] MEDS: DICYCLOMINE 10 MG CAP PO SCH ×3 (13:28→21:18)
[2018-07-31] MEDS: methylPREDNISolone SOD SUCC 40 MG/ML VIAL IVP SCH ×4 (06:13→23:13)
[2018-07-31] MEDS: DICYCLOMINE 10 MG CAP PO SCH ×4 (06:14→20:05)
[2018-07-31] MEDS: ENOXAPARIN 40 MG/0.4 ML SYR SC SCH (08:49)
[2018-07-31] MEDS: MESALAMINE 800 MG TAB.DR PO SCH ×3 (08:50→21:21)
[2018-08-01] MEDS: DICYCLOMINE 10 MG CAP PO SCH ×4 (05:12→21:35)
[2018-08-01] MEDS: methylPREDNISolone SOD SUCC 40 MG/ML VIAL IVP SCH ×4 (05:12→23:06)
[2018-08-01] MEDS: ENOXAPARIN 40 MG/0.4 ML SYR SC SCH (08:36)
[2018-08-01] MEDS: MESALAMINE 800 MG TAB.DR PO SCH (08:42)
[2018-08-02] MEDS: methylPREDNISolone SOD SUCC 40 MG/ML VIAL IVP SCH ×4 (05:24→23:06)
[2018-08-02] MEDS: DICYCLOMINE 10 MG CAP PO SCH ×3 (05:24→15:42)
[2018-08-02] MEDS: ENOXAPARIN 40 MG/0.4 ML SYR SC SCH (09:04)
[2018-08-02] MEDS ORDERED: ADALIMUMAB 80 MG/0.8 ML SC ONE (14:15)
[2018-08-02] MEDS ORDERED: LORazepam 0.5 MG TAB PO PRN (17:34)
[2018-08-03] MEDS: methylPREDNISolone SOD SUCC 40 MG/ML VIAL IVP SCH ×4 (05:50→23:02)
[2018-08-03] MEDS: ENOXAPARIN 40 MG/0.4 ML SYR SC SCH (10:05)
[2018-08-04] MEDS: methylPREDNISolone SOD SUCC 40 MG/ML VIAL IVP SCH ×4 (06:21→23:16)
[2018-08-04] MEDS: ENOXAPARIN 40 MG/0.4 ML SYR SC SCH (09:12)
[2018-08-05] MEDS: methylPREDNISolone SOD SUCC 40 MG/ML VIAL IVP SCH ×4 (05:36→23:54)
[2018-08-05] MEDS: ENOXAPARIN 40 MG/0.4 ML SYR SC SCH (08:09)
[2018-08-05] MEDS ORDERED: predniSONE 10 MG TAB PO SCH (09:00)
[2018-08-05] MEDS ORDERED: NS 1,000 ML IV ONE (12:34)
[2018-08-05] MEDS ORDERED: PEG 3350/NA SULF,BICARB,CL/KCL (GAVILYTE-G) 4000 ML BTL PO ONE ×2 (14:13→18:00)
[2018-08-05] MEDS ORDERED: MAGNESIUM CITRATE 300 ML BOTTLE PO ONE (16:00)
[2018-08-06] MEDS: methylPREDNISolone SOD SUCC 40 MG/ML VIAL IVP SCH ×3 (06:07→18:33)
[2018-08-06] MEDS ORDERED: LR 1,000 ML IV ONE (09:18)
[2018-08-06] MEDS ORDERED: PROPOFOL/EMULSION 500 MG/50 ML BOTTLE IV ONE (10:16)
[2018-08-06] MEDS ORDERED: fentaNYL 100 MCG/2 ML INJ ONE (10:16)
[2018-08-06] MEDS ORDERED: LIDOCAINE 2% 100 MG/5 ML SYR ONE (10:16)
[2018-08-06] MEDS ORDERED: INFLIXIMAB-DYYB 300 MG in NS 250 ML IV ONE (10:34)
[2018-08-06] MEDS: ENOXAPARIN 40 MG/0.4 ML SYR SC SCH (10:34)
[2018-08-06] MEDS ORDERED: ACETAMINOPHEN 325 MG TAB PO ONE (10:34)
[2018-08-06] MEDS ORDERED: ACETAMINOPHEN 325 MG TAB PO PRN (10:34)
[2018-08-06] MEDS ORDERED: EPINEPHrine 1 MG/ML INJ SC PRN (10:34)
[2018-08-06] MEDS ORDERED: predniSONE 20 MG TAB PO PRN (10:34)
[2018-08-06] MEDS ORDERED: diphenhydrAMINE 50 MG CAP PO PRN (10:34)
[2018-08-06] MEDS ORDERED: methylPREDNISolone SOD SUCC 125 MG/2 ML VIAL IVP PRN (10:34)
[2018-08-06] MEDS ORDERED: MEPERIDINE 25 MG/0.5 ML AMP IVP PRN (10:36)
[2018-08-06] MEDS ORDERED: DEXAMETHASONE 4 MG/ML VIAL IVP PRN (10:36)
[2018-08-06] MEDS ORDERED: NALOXONE HCL 0.4 MG/ML INJ IVP PRN (10:36)
[2018-08-06] MEDS ORDERED: LR 500 ML IV PRN (10:36)
[2018-08-06] MEDS ORDERED: fentaNYL 100 MCG/2 ML INJ IVP PRN (10:36)
[2018-08-06] MEDS ORDERED: NS 1,000 ML IV SCH (10:45)
[2018-08-07] MEDS: methylPREDNISolone SOD SUCC 40 MG/ML VIAL IVP SCH ×4 (00:51→17:30)
[2018-08-07] MEDS: ENOXAPARIN 40 MG/0.4 ML SYR SC SCH (10:26)
[2018-08-07] MEDS ORDERED: DIPHENOXYLATE/ATROPINE LOMOTIL 1 TAB PO PRN (11:28)
[2018-08-08] MEDS: methylPREDNISolone SOD SUCC 40 MG/ML VIAL IVP SCH ×5 (00:40→23:11)
[2018-08-08] MEDS: ENOXAPARIN 40 MG/0.4 ML SYR SC SCH (11:27)
[2018-08-09] MEDS: methylPREDNISolone SOD SUCC 40 MG/ML VIAL IVP SCH (05:19)
[2018-08-09] MEDS: ENOXAPARIN 40 MG/0.4 ML SYR SC SCH (09:30)
[2018-08-09] MEDS ORDERED: ZOLPIDEM TARTRATE 5 MG TAB PO PRN (11:47)
[2018-08-09] MEDS: methylPREDNISolone 4 MG TAB PO SCH (20:46)
[2018-08-09] MEDS ORDERED: NS 500 ML IV ONE (23:24)
[2018-08-10] MEDS ORDERED: NS 1,000 ML IV SCH (03:15)
[2018-08-10] MEDS: NS 1,000 ML IV SCH ×3 (07:35→18:21)
[2018-08-10] MEDS: methylPREDNISolone 4 MG TAB PO SCH ×2 (09:27→19:59)
[2018-08-10] MEDS: ENOXAPARIN 40 MG/0.4 ML SYR SC SCH (09:30)
[2018-08-10] MEDS ORDERED: methylPREDNISolone SOD SUCC 125 MG/2 ML VIAL IVP ONE ×2 (10:45→20:15)
[2018-08-11] MEDS: NS 1,000 ML IV SCH ×2 (02:09→08:59)
[2018-08-11] MEDS: methylPREDNISolone 4 MG TAB PO SCH ×2 (08:56→21:49)
[2018-08-11] MEDS: ENOXAPARIN 40 MG/0.4 ML SYR SC SCH (08:57)
[2018-08-11] MEDS ORDERED: methylPREDNISolone SOD SUCC 125 MG/2 ML VIAL IVP ONE ×2 (09:28)
[2018-08-11] MEDS ORDERED: FLUDROCORTISONE ACETATE 0.1 MG TAB PO SCH (10:15)
[2018-08-11] MEDS ORDERED: D50W 25 GM/50 ML SYR IVP PRN (11:18)
[2018-08-11] MEDS: INSULIN LISPRO 100 UNIT/ML SC SCH ×2 (12:20→18:19)
[2018-08-12] MEDS ORDERED: predniSONE 10 MG TAB PO SCH (09:00)
[2018-08-12] MEDS ORDERED: ACETAMINOPHEN/CODEINE 300/30MG TAB PO PRN (09:44)
[2018-08-12] MEDS: methylPREDNISolone 4 MG TAB PO SCH ×2 (10:01→21:26)
[2018-08-12] MEDS: CALCIUM CARBONATE 500 MG TAB PO SCH ×2 (10:04→21:27)
[2018-08-12] MEDS: FLUDROCORTISONE ACETATE 0.1 MG TAB PO SCH ×2 (10:07→21:28)
[2018-08-12] MEDS: INSULIN LISPRO 100 UNIT/ML SC SCH ×3 (11:12→19:01)
[2018-08-12] MEDS: ENOXAPARIN 40 MG/0.4 ML SYR SC SCH (11:17)
[2018-08-13] MEDS ORDERED: POTASSIUM CL 20 MEQ TAB PO ONE (08:29)
[2018-08-13] MEDS: INSULIN LISPRO 100 UNIT/ML SC SCH ×3 (08:51→19:05)
[2018-08-13] MEDS: FLUDROCORTISONE ACETATE 0.1 MG TAB PO SCH ×2 (09:54→20:19)
[2018-08-13] MEDS: methylPREDNISolone 4 MG TAB PO SCH ×2 (09:54→20:18)
[2018-08-13] MEDS: CALCIUM CARBONATE 500 MG TAB PO SCH ×2 (09:54→20:19)
[2018-08-13] MEDS: ENOXAPARIN 40 MG/0.4 ML SYR SC SCH (10:06)
[2018-08-13] MEDS ORDERED: NS IV SCH (14:00)
[2018-08-13] MEDS ORDERED: GANCICLOVIR SODIUM IV SCH (14:00)
[2018-08-14] MEDS: INSULIN LISPRO 100 UNIT/ML SC SCH ×3 (07:32→17:23)
[2018-08-14] MEDS: ENOXAPARIN 40 MG/0.4 ML SYR SC SCH (07:45)
[2018-08-14] MEDS: CALCIUM CARBONATE 500 MG TAB PO SCH ×2 (08:34→21:58)
[2018-08-14] MEDS: FLUDROCORTISONE ACETATE 0.1 MG TAB PO SCH ×2 (08:35→21:58)
[2018-08-14] MEDS ORDERED: methylPREDNISolone 4 MG TAB PO SCH (09:00)
[2018-08-14] MEDS ORDERED: ALTEPLASE 2 MG VIAL IVP PRN (12:25)
[2018-08-14] MEDS ORDERED: POTASSIUM CL 20 MEQ TAB PO ONE (14:50)
[2018-08-14] MEDS ORDERED: NS 1,000 ML IV SCH (16:30)
[2018-08-14] MEDS: SODIUM CHLORIDE 1,000 MG TAB PO SCH (17:30)
[2018-08-14] MEDS: methylPREDNISolone 4 MG TAB PO SCH (21:58)
[2018-08-15] MEDS: INSULIN LISPRO 100 UNIT/ML SC SCH ×3 (08:02→18:16)
[2018-08-15] MEDS: CALCIUM CARBONATE 500 MG TAB PO SCH ×2 (08:03→20:32)
[2018-08-15] MEDS: FLUDROCORTISONE ACETATE 0.1 MG TAB PO SCH ×2 (08:03→20:32)
[2018-08-15] MEDS: methylPREDNISolone 4 MG TAB PO SCH ×2 (08:04→20:32)
[2018-08-15] MEDS: SODIUM CHLORIDE 1,000 MG TAB PO SCH ×2 (08:04→17:02)
[2018-08-15] MEDS ORDERED: POTASSIUM CL 20 MEQ TAB PO ONE ×2 (08:16→15:56)
[2018-08-16] MEDS: methylPREDNISolone 4 MG TAB PO SCH ×2 (09:54→20:22)
[2018-08-16] MEDS: CALCIUM CARBONATE 500 MG TAB PO SCH ×2 (09:59→20:22)
[2018-08-16] MEDS: FLUDROCORTISONE ACETATE 0.1 MG TAB PO SCH ×2 (09:59→20:22)
[2018-08-16] MEDS: SODIUM CHLORIDE 1,000 MG TAB PO SCH ×2 (09:59→18:24)
[2018-08-16] MEDS: INSULIN LISPRO 100 UNIT/ML SC SCH ×2 (10:01→11:43)
[2018-08-16] MEDS: MIDODRINE HCL 5 MG TAB PO SCH (16:03)
[2018-08-17] MEDS ORDERED: POTASSIUM CL 20 MEQ TAB PO ONE ×2 (08:15→14:47)
[2018-08-17] MEDS: methylPREDNISolone 4 MG TAB PO SCH ×2 (08:35→20:24)
[2018-08-17] MEDS: SODIUM CHLORIDE 1,000 MG TAB PO SCH ×2 (08:35→18:12)
[2018-08-17] MEDS: CALCIUM CARBONATE 500 MG TAB PO SCH ×2 (08:35→20:25)
[2018-08-17] MEDS: MIDODRINE HCL 5 MG TAB PO SCH ×3 (08:36→16:07)
[2018-08-17] MEDS: FLUDROCORTISONE ACETATE 0.1 MG TAB PO SCH ×2 (08:36→20:25)
[2018-08-17] MEDS: NS IV SCH (20:27)
[2018-08-17] MEDS: GANCICLOVIR SODIUM IV SCH (20:27)
[2018-08-18] MEDS: FLUDROCORTISONE ACETATE 0.1 MG TAB PO SCH ×2 (08:49→20:15)
[2018-08-18] MEDS: MIDODRINE HCL 5 MG TAB PO SCH ×3 (08:49→17:35)
[2018-08-18] MEDS: methylPREDNISolone 4 MG TAB PO SCH ×2 (08:49→20:15)
[2018-08-18] MEDS: CALCIUM CARBONATE 500 MG TAB PO SCH ×2 (08:49→20:15)
[2018-08-18] MEDS: SODIUM CHLORIDE 1,000 MG TAB PO SCH ×2 (08:49→17:34)
[2018-08-18] MEDS: GANCICLOVIR SODIUM IV SCH ×2 (08:59→20:15)
[2018-08-18] MEDS: NS IV SCH ×2 (08:59→20:15)
[2018-08-18] MEDS ORDERED: POTASSIUM CL 20 MEQ TAB PO ONE ×2 (09:08→12:30)
[2018-08-19] MEDS: GANCICLOVIR SODIUM IV SCH ×2 (08:16→21:44)
[2018-08-19] MEDS: FLUDROCORTISONE ACETATE 0.1 MG TAB PO SCH ×2 (08:16→21:41)
[2018-08-19] MEDS: CALCIUM CARBONATE 500 MG TAB PO SCH ×2 (08:16→21:40)
[2018-08-19] MEDS: NS IV SCH ×2 (08:16→21:44)
[2018-08-19] MEDS: methylPREDNISolone 4 MG TAB PO SCH ×2 (08:16→21:40)
[2018-08-19] MEDS: MIDODRINE HCL 5 MG TAB PO SCH ×3 (08:17→17:00)
[2018-08-19] MEDS: SODIUM CHLORIDE 1,000 MG TAB PO SCH ×3 (08:17→17:00)
[2018-08-19] MEDS ORDERED: predniSONE 10 MG TAB PO SCH (09:00)
[2018-08-19] MEDS: BENZONATATE 100 MG CAP PO PRN ×2 (12:29→21:40)
[2018-08-19] MEDS ORDERED: ALTEPLASE 2 MG VIAL IVP PRN ×2 (12:40→12:49)
[2018-08-20] MEDS: CALCIUM CARBONATE 500 MG TAB PO SCH ×2 (08:33→21:47)
[2018-08-20] MEDS: SODIUM CHLORIDE 1,000 MG TAB PO SCH ×2 (08:33→18:48)
[2018-08-20] MEDS: MIDODRINE HCL 5 MG TAB PO SCH ×3 (08:33→17:06)
[2018-08-20] MEDS: GANCICLOVIR SODIUM IV SCH ×2 (08:34→21:46)
[2018-08-20] MEDS: methylPREDNISolone 4 MG TAB PO SCH ×2 (08:34→21:47)
[2018-08-20] MEDS: NS IV SCH ×2 (08:34→21:46)
[2018-08-20] MEDS: FLUDROCORTISONE ACETATE 0.1 MG TAB PO SCH ×2 (08:34→21:46)
[2018-08-20] MEDS ORDERED: NS W/ 20 KCl/L 1,000 ML IV SCH (13:00)
[2018-08-20] MEDS ORDERED: NS 500 ML IV ONE (13:09)
[2018-08-20] MEDS: BENZONATATE 100 MG CAP PO PRN ×2 (13:11→22:04)
[2018-08-21] MEDS ORDERED: NS 1,000 ML IV ONE (07:53)
[2018-08-21] MEDS: CALCIUM CARBONATE 500 MG TAB PO SCH (08:53)
[2018-08-21] MEDS: MIDODRINE HCL 5 MG TAB PO SCH (08:53)
[2018-08-21] MEDS: methylPREDNISolone 4 MG TAB PO SCH (08:54)
[2018-08-21] MEDS: SODIUM CHLORIDE 1,000 MG TAB PO SCH (08:54)
[2018-08-21] MEDS: FLUDROCORTISONE ACETATE 0.1 MG TAB PO SCH (08:54)
[2018-08-21] MEDS: GANCICLOVIR SODIUM IV SCH (09:31)
[2018-08-21] MEDS: NS IV SCH (09:31)
[2018-08-22] MEDS ORDERED: methylPREDNISolone 4 MG TAB PO SCH (09:00)
[2018-08-26] MEDS ORDERED: predniSONE 20 MG TAB PO SCH (09:00)
[2018-09-02] MEDS ORDERED: predniSONE 10 MG TAB PO SCH (09:00)
[2018-09-09] MEDS ORDERED: predniSONE 10 MG TAB PO SCH (09:00)
[2018-09-16] MEDS ORDERED: predniSONE 5 MG TAB PO SCH (09:00)
== END 2018-08-21 12:31 | disposition short-term general hospital (02) | DRG 385 ==
DX: K50.10 Crohn's disease of large intestine without complications (principal); A08.39 Other viral enteritis; B25.8 Other cytomegaloviral diseases; I63.319 Cerebral infarction due to thrombosis of unspecified middle cerebral artery; E87.1 Hypo-osmolality and hyponatremia; I95.1 Orthostatic hypotension; M62.830 Muscle spasm of back; Z66 Do not resuscitate